=== PATIENT | female | born 1940 | race Caucasian/White ===

== ENCOUNTER 2023-06-08 19:56 | Inpatient (IN) ==
[2023-06-08 21:21] LABS: Albumin Globulin Ratio 1.3 (0.9-2); Albumin Level 3.9 gm/dl (3.4-5.0); BUN Creatinine Ratio 19.3 (10-20); Bilirubin,Total 0.5 mg/dl (0.2-1.0); Calcium 9.2 mg/dl (8.6-10.3); Creatinine Clr Calc Pharmacy 54.5 ml/min; Est GFR (African American) 75.6 ml/min; Est GFR (Non-African American) 65.2 ml/min; Globulin 3.1 gm/dl (2.5-4.0); Potassium 3.9 mmol/L (3.5-5.1)
[2023-06-08 21:27] LABS: Basophils # (auto) 0.04 K/uL (0.00-0.20); Basophils % (auto) 0.5 %; Eosinophils # (auto) 0.12 K/uL (0.00-0.50); Eosinophils % (auto) 1.5 %; Hematocrit (blood only) 38.5 % (37.0-47.0); Hemoglobin 12.7 g/dl (12.0-16.0); Immature Granulocytes # (auto) 0.02 K/uL (0.01-0.20); Immature Granulocytes % (auto) 0.2 %; Lymphocytes % (auto) 24.2 %; Mean Corpuscular Hemoglobin 31.4 pg (25.0-34.0); Mean Corpuscular Volume 95.1 fL (80.0-100.0); Mean Platelet Volume 13.4 fL (9.4-12.4); Monocytes # (auto) 0.74 K/uL (0.11-0.59); Monocytes % (auto) 8.9 %; Neutrophils # (auto) 5.35 K/uL (1.40-6.50); Neutrophils % (auto) 64.7 %; Platelet Count 116 K/uL (130-400); RDW Coefficient of Variation 13.8 % (11.5-14.5); RDW Standard Deviation 48.7 fL (36.4-46.3); Red Blood Count 4.05 M/uL (4.20-5.40); White Blood Count 8.27 K/ul (4.8-10.8)
[2023-06-08 21:28] LABS: Troponin I High Sensitivity 16.3 pg/ml (0-14)
[2023-06-08 21:32] LABS: Partial Thromboplastin Ratio 0.8; Partial Thromboplastin Time 23.6 Seconds (21.0-31.0); Prothrombin Time 10.9 Seconds (9.0-12.0)
[2023-06-08] MEDS ORDERED: dilTIAZem HCl 5 MG/ML 5 ML VIAL IV STA ×2 (21:49→22:38)
--- NOTE | 2023-06-08 21:54 | Emergency Department Note ---
Impression & Plan Atrial fibrillation with rapid ventricular response ED Provider Note NAME: PHOEBE MORELOS AGE: 83 SEX: F : 1940 ARRIVES VIA: Walk-In INFORMANT: Patient, ED PROVIDER(S): Paulette Spring MD CHIEF COMPLAINT: "I am fibrillating " HPI: This is an 83-year-old female history of hypertension, CKD, aortic valve stenosis status post replacement presenting for elevated heart rate. Patient states that she the past 1 week has noted palpitations in her chest. She notes for the past 1 week she has been having increasing palpitations specifically when she is walking around and now progressed into when she is at rest. She notes no shortness of breath. She has no fatigue with walking. No chest pain. No nausea, vomiting, fever, chills, leg pain, I dysuria, hematuria. ROS: See above HPI for pertinent positives & negatives. A total of 10 systems reviewed and were otherwise negative. PAST MEDICAL HISTORY: See Below PAST SURGICAL HISTORY: See Below FAMILY HISTORY: See Below SOCIAL HISTORY: See Below HOME MEDICATIONS: See Below ALLERGIES: See Below VITALS: See Below PHYSICAL EXAMINATION: General: resting comfortably in no acute distress Head: Normocephalic and atraumatic Eyes: Normal inspection, extraocular muscles intact, no conjunctival pallor Ear, nose, throat: Normal external exam Neck: Normal range of motion Respiratory: Patient is in no respiratory distress, lungs clear to auscultation bilaterally Cardiovascular: Irregularly irregular without murmur appreciated GI: soft, nontender, no guarding or rebound Extremities: pulses intact with good cap refills, no LE pitting edema or calf tenderness Neuro: The patient awake and alert, appropriately conversive,no focal decifits Skin: Warm, dry, and intact MEDICAL DECISION MAKING: This is an 83-year-old female history of hypertension, CKD, aortic valve stenosis presenting for elevated heart rate. Patient is in A-fib with RVR with rates in the 110s to 140s. We will give IV diltiazem at this time. We will look for other source such as UTI for underlying A-fib. Patient does have a slight troponin elevation, possibly demand based on A-fib. Otherwise at the time patient required 2 IV doses of diltiazem. She has moderate improvement in her heart rate but is still occasionally above 100. Due to this plus troponin elevation and [id number] of 4, will admit for anticoagulation, A-fib control, echocardiogram and further work-up. Patient does have a UTI at this time a urinalysis, possible source of underlying A-fib. Will treat Rocephin. Will admit to hospitalist service, discussed with Dr. Ibanez for admission. Triage Nursing notes reviewed. Prior medical records reviewed Vital Signs: reviewed and remarkable for no significant abnormalities Differential diagnosis: Atrial fibrillation, ACS, PE ER treatment provided: See below Diagnostics interpreted by me: ECG: ECG independently interpreted by me with atrial fibrillation with RVR, ventricular rate 118 normal QRS, normal QTc, no ST segment elevations consistent with STEMI criteria Cardiac Monitoring: An order was placed for continuous cardiac monitoring. The monitor shows a rate of 107 with atrial fibrillation rhythm. Laboratory studies: As stated above and show below. Imaging studies: See below. Radiographic imaging was reviewed by myself Consultation(s): None Critical Care Note: I have personally spent 47 minutes of critical care time in the direct management of this patient. This includes bedside care, interpretation of diagnostic studies, and testing, discussion with consultants, patient, and family members, and other required patient management activities. This 47 minutes is in excess of all separately billable procedures. Past Med/Surg History Medical History (Updated 06/09/23 @ 02:13 by Paulette Spring MD) Hx of breast cancer surgical intervention and had chemo - last dose 1989 RUTHIE (generalized anxiety disorder) GERD (gastroesophageal reflux disease) Vitamin D deficiency CKD (chronic kidney disease), stage III Hypothyroidism HLD (hyperlipidemia) Aortic valve stenosis S/p bioprosthetic aortic valve replacement in Mar 2018 at [facility] [place] Hypertension Surgical History (System 02/04/20 @ 10:02 by Lian Feliz) History of left cataract extraction Hx of colonoscopy H/O aortic valve replacement with porcine valve 2018 History of hernia repair inguinal hernia repair S/P TKR (total knee replacement) left H/O mastectomy left Family History (System 02/04/20 @ 10:02 by Lian Feliz) Other Coronary heart disease Heart disease Hypertension Social History (System 02/04/20 @ 10:02 by Lian Feliz) Smoking Status: Former smoker Second Hand Exposure: No; Do You Dip or Chew Tobacco: No; Hx Alcohol Use: Yes Alcohol type: wine Hx Substance Use: No Preferred Language: Serbian Communication Ability: Effective Government Teacher Required: No Beliefs That Will Affect Care: None Current Living Situation: Spouse current occupation: Retired Feels Safe at Home: Yes Assistive Devices: Denture - Upper and Glasses Allergies Allergies Allergy/AdvReac Type Severity Reaction Status Date / Time Sulfa (Sulfonamide AdvReac Intermediate Nausea & Verified 06/08/23 23:05 Antibiotics) Vomiting amoxicillin AdvReac Mild decreased Verified 06/08/23 23:05 sensation of smell and taste clavulanic acid AdvReac Mild decreased Verified 06/08/23 23:05 sensation of smell and taste Home Meds Home Medications Medication Instructions Recorded Confirmed acetaminophen 500 mg tablet 500 mg PO Q8H PRN Pain 04/30/18 06/08/23 amoxicillin 500 mg tablet 4 cap PO UD PRN dental procedure 04/30/18 06/08/23 aspirin 81 mg tablet,delayed 81 mg PO DAILY 04/30/18 06/08/23 release (Kesha Low Dose Aspirin) buspirone 10 mg tablet 10 mg PO TID PRN Anxiety 04/30/18 06/08/23 calcium acetate(phosphat bind) 667 1 tab PO DAILY 04/30/18 06/08/23 mg capsule cholecalciferol (vitamin D3) 25 1,000 unit PO DAILY 04/30/18 06/08/23 mcg (1,000 unit) tablet (Vitamin D3) famotidine 20 mg tablet (Pepcid) 20 mg PO Q12 04/30/18 06/08/23 levothyroxine 200 mcg tablet 200 mcg PO QAM 04/30/18 06/08/23 multivitamin 1 tab PO DAILY 04/30/18 06/08/23 sertraline 100 mg tablet 150 mg PO QAM 04/30/18 06/08/23 metoprolol tartrate 50 mg tablet 25 mg PO Q12 06/08/23 06/08/23 rosuvastatin 40 mg tablet 40 mg PO QAM 06/08/23 06/08/23 Results & Data (ED) Vital Signs Vital Signs - 24 hr 06/08/23 19:58 06/08/23 21:09 06/08/23 21:30 Temperature 36.8 C Temperature Source Temporal Artery Scan Pulse Rate 142 H 119 H Pulse Rate from SpO2 Sensor Pulse Rhythm Regular Pulse Strength Normal Respiratory Rate 19 Respiratory Effort / Characteristics Non-Labored Spontaneous Respiratory Depth Normal Respiratory Pattern Regular Blood Pressure 147/86 H 131/101 H Blood Pressure Mean 106 115 Blood Pressure Position Sitting Pulse Oximetry 90 Oxygen Delivery Method Room Air Sepsis Recent Fever Within 48 Hours No Sepsis New/Unexplained Change in Mental Status N/A Sepsis Action Taken by Nursing No Action Required 06/08/23 21:30 06/08/23 22:00 06/08/23 22:00 Temperature Temperature Source Pulse Rate 132 H 86 Pulse Rate from SpO2 Sensor 124 H 92 H Pulse Rhythm Pulse Strength Respiratory Rate 16 24 Respiratory Effort / Characteristics Respiratory Depth Respiratory Pattern Blood Pressure 109/70 Blood Pressure Mean 96 Blood Pressure Position Pulse Oximetry 95 95 Oxygen Delivery Method Sepsis Recent Fever Within 48 Hours Sepsis New/Unexplained Change in Mental Status Sepsis Action Taken by Nursing 06/08/23 22:29 06/08/23 22:30 06/08/23 23:00 Temperature Temperature Source Pulse Rate 104 H 85 Pulse Rate from SpO2 Sensor 116 H 81 Pulse Rhythm Pulse Strength Respiratory Rate 16 18 Respiratory Effort / Characteristics Respiratory Depth Respiratory Pattern Blood Pressure 127/90 134/77 Blood Pressure Mean 111 96 Blood Pressure Position Pulse Oximetry 94 95 Oxygen Delivery Method Sepsis Recent Fever Within 48 Hours Sepsis New/Unexplained Change in Mental Status Sepsis Action Taken by Nursing 06/08/23 23:31 06/09/23 00:31 Temperature Temperature Source Pulse Rate 90 107 H Pulse Rate from SpO2 Sensor 92 H 98 H Pulse Rhythm Pulse Strength Respiratory Rate 19 13 Respiratory Effort / Characteristics Respiratory Depth Respiratory Pattern Blood Pressure 140/91 153/99 H Blood Pressure Mean 107 117 Blood Pressure Position Pulse Oximetry 94 95 Oxygen Delivery Method Sepsis Recent Fever Within 48 Hours Sepsis New/Unexplained Change in Mental Status Sepsis Action Taken by Nursing Laboratory Data 06/08/23 20:28 06/08/23 20:28 Lab Results 06/08/23 06/08/23 Range/Units 20:28 22:35 WBC 8.27 (4.8-10.8) K/ul RBC 4.05 L (4.20-5.40) M/uL Hgb 12.7 (12.0-16.0) g/dl Hct 38.5 (37.0-47.0) % MCV 95.1 (80.0-100.0) fL MCH 31.4 (25.0-34.0) pg MCHC 33.0 (32.0-36.0) g/dL RDW Std Deviation 48.7 H (36.4-46.3) fL RDW Coeff of Mary 13.8 (11.5-14.5) % Plt Count 116 L (130-400) K/uL MPV 13.4 H (9.4-12.4) fL Immature Gran % (Auto) 0.2 % Neut % (Auto) 64.7 % Lymph % (Auto) 24.2 % Rowan % (Auto) 8.9 % Eos % (Auto) 1.5 % Baso % (Auto) 0.5 % Neut # (Auto) 5.35 (1.40-6.50) K/uL Lymph # (Auto) 2.00 (1.20-3.40) K/uL Rowan # (Auto) 0.74 H (0.11-0.59) K/uL Eos # (Auto) 0.12 (0.00-0.50) K/uL Baso # (Auto) 0.04 (0.00-0.20) K/uL Immature Gran # (Auto) 0.02 (0.01-0.20) K/uL PT 10.9 (9.0-12.0) Seconds INR 1.0 (0.9-1.1) APTT 23.6 (21.0-31.0) Seconds PTT Ratio 0.8 Sodium 140 (136-145) mmol/L Potassium 3.9 (3.5-5.1) mmol/L Chloride 108 H (98-107) mmol/L Carbon Dioxide 26 (21-32) mmol/L Anion Gap 6 (3-11) BUN 16 (6-23) mg/dl Creatinine 0.83 (0.6-1.2) mg/dl Est Cr Clr Drug Dosing 54.5 ml/min Est GFR ( Amer) 75.6 ml/min Est GFR (Non-Af Amer) 65.2 ml/min BUN/Creatinine Ratio 19.3 (10-20) Glucose 97 (70-99(Fasting)) mg/dl Calcium 9.2 (8.6-10.3) mg/dl Magnesium 1.9 (1.7-2.4) mg/dl Total Bilirubin 0.5 (0.2-1.0) mg/dl AST 30 (13-39) U/L ALT 15 (7-52) U/L Alkaline Phosphatase 69 (34-104) U/L Troponin I High Sens 16.3 H (0-14) pg/ml Total Protein 7.0 (6.0-8.3) gm/dl Albumin 3.9 (3.4-5.0) gm/dl Globulin 3.1 (2.5-4.0) gm/dl Albumin/Globulin Ratio 1.3 (0.9-2) TSH 0.191 L (0.300-4.500) uIu/ml Free T4 0.97 (0.61-1.60) ng/dl Urine Color Yellow Urine Appearance Clear (Clear) Urine pH 6.0 (4.5-7.5) Ur Specific [place] 1.013 (1.000-1.030) Urine Protein Negative (Negative) Urine Glucose (UA) Negative (Negative) Urine Ketones Trace H (Negative) Urine Blood Negative (Negative) Urine Nitrite Negative (Negative) Urine Bilirubin Negative (Negative) Urine Urobilinogen Negative (Negative) Ur Leukocyte Esterase 1+ H (Negative) Urine WBC (Auto) 10-30 H (0-5) /hpf Urine RBC (Auto) 0-4 (0-4) /hpf U Hyaline Cast (Auto) 1-5 (0-5) /lpf U Epithel Cells (Auto) 5-10 H (0-5) /lpf Urine Bacteria (Auto) Negative (Negative) Administered Medications Discontinued Medications Diltiazem HCl (Diltiazem Hcl 5 Mg/Ml 5 Ml Vial) 10 mg IV NOW STA Stop: 06/08/23 21:50 Last Admin: 06/08/23 21:54 Dose: 10 mg Documented By: JOSE ANTONIO Co-signed By: QGV Diltiazem HCl (Diltiazem Hcl 5 Mg/Ml 5 Ml Vial) 10 mg IV NOW STA Stop: 06/08/23 22:39 Last Admin: 06/08/23 22:46 Dose: 10 mg Documented By: JOSE ANTONIO Co-signed By: JENSEN Ceftriaxone Sodium 1,000 mg/ (Dextrose) 50 mls @ 100 mls/hr IV NOW STA; Protocol Stop: 06/09/23 00:26 Last Infusion: 06/09/23 01:19 Dose: Infused Documented By: JOSE ANTONIO Admin: 06/09/23 00:43 Dose: 100 mls/hr Documented By: JOSE ANTONIO Ioversol (Optiray 320 500ml) 125 ml IV ONCE ONE Stop: 06/09/23 01:54 Last Admin: 06/09/23 01:54 Dose: 109 ml Documented By: IAN Metoprolol Tartrate (Metoprolol Tartrate 1 Mg/Ml Vial) 5 mg IV NOW STA Stop: 06/08/23 22:38 Last Admin: 06/08/23 22:49 Dose: Not Given Documented By: JOSE ANTONIO Metoprolol Tartrate (Metoprolol Tartrate 25 Mg Tab) 25 mg PO NOW STA Stop: 06/08/23 23:28 Last Admin: 06/09/23 00:07 Dose: 25 mg Documented By: JOSE ANTONIO Potassium Chloride (Potassium Chloride 10 Meq Tabcr) 10 meq PO NOW STA Stop: 06/08/23 23:25 Last Admin: 06/09/23 01:20 Dose: Not Given Documented By: JOSE ANTONIO Discharge Plan Visit Data Chief Complaint: Tachycardia Stated Complaint: ?AFIB, TACHYCARDIA ED Provider: Paulette Spring Discharge Problem: Atrial fibrillation with rapid ventricular response Patient Disposition: Admitted As Inpatient Discharge Instructions Interventions: ED Discharge Assessment Last Done: 06/09/23 01:37
[2023-06-08] MEDS ORDERED: METOPROLOL TARTRATE 1 MG/ML VIAL IV STA (22:37)
[2023-06-08 22:59] LABS: Appearance Urine Clear (Clear); Bacteria Urine Automated Negative (Negative); Bilirubin Urine Negative (Negative); Blood Urine Negative (Negative); Color Urine Yellow; Glucose Urine UA Negative (Negative); Ketones Urine Trace (Negative); Leukocyte Esterase Urine 1+ (Negative); Nitrite Urine Negative (Negative); Protein Urine Negative (Negative); RBC Urine Automated 0-4 /hpf (0-4); Specific Gravity Urine 1.013 (1.000-1.030); Urobilinogen Urine Negative (Negative)
[2023-06-08] MEDS ORDERED: POTASSIUM CHLORIDE 10 MEQ TABCR PO STA (23:24)
[2023-06-08] MEDS ORDERED: NSS + 20MEQ KCL 20 MEQ/1,000 ML BAG IV ONE (23:27)
[2023-06-08] MEDS ORDERED: METOPROLOL TARTRATE 25 MG TAB PO STA (23:27)
[2023-06-08 23:43] LABS: Magnesium 1.9 mg/dl (1.7-2.4)
[2023-06-08] MEDS ORDERED: cefTRIAXone SODIUM 1,000 MG in DEXTROSE 5 % MINI-B 50 ML IV STA (23:57)
[2023-06-09 00:02] LABS: Thyroid Stimulating Hormone 0.191 uIu/ml (0.300-4.500)
[2023-06-09] MEDS ORDERED: Heparin IV Adult Wt-Based Low-Dose *NO* Bolus Protocol IV SCH (00:33)
--- NOTE | 2023-06-09 00:33 | History & Physical Report ---
Date of Service June 09, 2023 Assessment & Plan (1) Atrial fibrillation with rapid ventricular response: Plan: Recurrent A-fib History postop A-fib, hx aortic stenosis status post bioprosthetic AVR (2015) Secondary to noncompliance with prescribed beta-tommie regimen frequency Rule out pulmonary embolism as precipitant given pleuritic chest pain complaints Troponin elevation secondary above history of diastolic dysfunction (EF 65%, TTE 2022) hx nonobstructive CAD as per records hypertension, stable hyperlipidemia, on statin Rx hypothyroidism, TSH noted to be low with normal free T4 left breast cancer status post surgery anxiety/mood disorder, baseline symptoms Complicated UTI, no sepsis for now New onset thrombocytopenia, patient without overt bleeding symptoms Past tobacco abuse PCU Titrate home beta-tommie Patient educated regarding compliance with prescribed twice daily frequency dosing for home metoprolol tartrate Rx IV heparin for thromboembolic prophylaxis. Monitor platelet count while on IV heparin CT chest PE study Follow troponin TTE, Cardiology consult Re: Recurrent A-fib Urine CS, Ceftriaxone DVT prophylaxis. Heparin Full code Text document was generated using sMedio voice recognition software. It may contain grammatical or spelling errors. Kindly contact undersigned for clarification of any documentation item in question. History of Present Illness Chief Complaint: Atrial fibrillation Primary Care Provider: Helio Muse MD History obtained from patient, family, and records. Medical history significant for history of diastolic dysfunction (EF 65%, TTE 2022), nonobstructive CAD as per records, aortic stenosis status post bioprosth etic AVR (2015), postop A-fib, hypertension, hyperlipidemia, hypothyroidism, GERD, left breast cancer status post surgery/chemotherapy, skin cancer as per records, anxiety/mood disorder, Paget's disease as per records, past tobacco abuse. Last confinement April 2018 for pleural effusion. 1 week history of intermittent chest palpitations, SOB more pronounced on exertion. No unusual cough symptoms. Pleuritic left-sided chest discomfort. No unusual fluid retention. Some stress with 's medical issues. No inordinate caffeine intake. Patient taking metoprolol 25 mg p.o. daily instead of 12.5 mg p.o. twice daily as instructed for some time now. Few days history of bladder discomfort without flank pain or hematuria complaints. No fever, no chills. Patient mentioned palpitation symptoms to son yesterday while visiting her at rehab hospital. A-fib noted on son's watch dinora. Patient consulted ER for evaluation. 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 Allergies Allergy/AdvReac Type Severity Reaction Status Date / Time Sulfa (Sulfonamide AdvReac Intermediate Nausea & Verified 06/08/23 23:05 Antibiotics) Vomiting amoxicillin AdvReac Mild decreased Verified 06/08/23 23:05 sensation of smell and taste clavulanic acid AdvReac Mild decreased Verified 06/08/23 23:05 sensation of smell and taste Home Medications Medication Instructions Recorded Confirmed Type acetaminophen 500 mg tablet 500 mg PO Q8H PRN Pain 04/30/18 06/08/23 History amoxicillin 500 mg tablet 4 cap PO UD PRN dental procedure 04/30/18 06/08/23 History aspirin 81 mg tablet,delayed 81 mg PO DAILY 04/30/18 06/08/23 History release (Kesha Low Dose Aspirin) buspirone 10 mg tablet 10 mg PO TID PRN Anxiety 04/30/18 06/08/23 History calcium acetate(phosphat bind) 667 1 tab PO DAILY 04/30/18 06/08/23 History mg capsule cholecalciferol (vitamin D3) 25 1,000 unit PO DAILY 04/30/18 06/08/23 History mcg (1,000 unit) tablet (Vitamin D3) famotidine 20 mg tablet (Pepcid) 20 mg PO Q12 04/30/18 06/08/23 History levothyroxine 200 mcg tablet 200 mcg PO QAM 04/30/18 06/08/23 History multivitamin 1 tab PO DAILY 04/30/18 06/08/23 History sertraline 100 mg tablet 150 mg PO QAM 04/30/18 06/08/23 History metoprolol tartrate 50 mg tablet 25 mg PO Q12 06/08/23 06/08/23 History rosuvastatin 40 mg tablet 40 mg PO QAM 06/08/23 06/08/23 History Past Med/Surg History Medical History (Updated 06/09/23 @ 07:41 by JHONATHAN Cavanaugh) Hx of breast cancer surgical intervention and had chemo - last dose 1989 RUTHIE (generalized anxiety disorder) GERD (gastroesophageal reflux disease) Vitamin D deficiency CKD (chronic kidney disease), stage III Hypothyroidism HLD (hyperlipidemia) Aortic valve stenosis S/p bioprosthetic aortic valve replacement in Mar [place] [facility] [place] Hypertension Surgical History (Updated 06/09/23 @ 07:41 by JHONATHAN Cavanaugh) History of left cataract extraction Hx of colonoscopy H/O aortic valve replacement with porcine valve 2017 History of hernia repair inguinal hernia repair S/P TKR (total knee replacement) left H/O mastectomy left Family History (System 02/04/20 @ 10:02 by Lian Feliz) Other Coronary heart disease Heart disease Hypertension Social History (System 02/04/20 @ 10:02 by Lian Feliz) Smoking Status: Former smoker Smoking End Date: 40 years ago; Second Hand Exposure: No; Do You Dip or Chew Tobacco: No; Tobacco Cessation Education Requested by Patient: No Hx Alcohol Use: Yes Alcohol type: wine Hx Substance Use: No Preferred Language: Mauritanian Communication Ability: Effective Lgsw Required: No Beliefs That Will Affect Care: None Current Living Situation: Spouse current occupation: Retired Other Information That Helps Us Care for You: No Feels Safe at Home: Yes Safety Concerns: Feels Safe At This Time Assistive Devices: Glasses Review of Systems Review of Systems: As per HPI, all other systems reviewed and negative Physical Exam Physical Exam: GENERAL: Comfortable, pleasant, looks younger than stated age, no respiratory distress SKIN: Normal color, warm HEENT: Bespectacled, [place] palpebral conjunctivae, no ptosis, moist buccal mucosa NECK : Supple, no tenderness CHEST : Decreased breath sounds, no tenderness HEART : Irregular, systolic murmur ABDOMEN: Some distention, nontender EXTREMITIES : Minimal LE swelling, no LE tenderness, no other conspicuous deformities noted NEUROLOGIC : Coherent, no facial asymmetry, no other gross focality Results & Data Results & Data Vital Signs (Past 12 Hours) Vital Signs Temp Pulse Resp BP Pulse Ox O2 Del Method 06/08/23 22:30 127/90 06/08/23 22:29 104 H 16 94 06/08/23 22:00 109/70 06/08/23 22:00 86 24 95 06/08/23 21:30 132 H 16 95 06/08/23 21:30 131/101 H 06/08/23 21:09 119 H 06/08/23 19:58 36.8 C 142 H 19 147/86 H 90 Room Air Laboratory Results Laboratory Results WBC 8.27 K/ul (4.8-10.8) 06/08/23 20: RBC 4.05 M/uL (4.20-5.40) L 06/08/23 20: Hgb 12.7 g/dl (12.0-16.0) 06/08/23: Hct 38.5 % (37.0-47.0) 06/08/23: MCV 95.1 fL (80.0-100.0) 06/08/23: MCH 31.4 pg (25.0-34.0) 06/08/23: MCHC 33.0 g/dL (32.0-36.0) 06/08/23 RDW Std Deviation 48.7 fL (36.4-46.3) H 06/08/23: RDW Coeff of Mary 13.8 % (11.5-14.5) 06/08/23: Plt Count 116 K/uL (130-400) L 06/08/23: MPV 13.4 fL (9.4-12.4) H 06/08/23: Immature Gran % (Auto) 0.2 % 06/08/23: Neut % (Auto) 64.7 % 06/08/23: Lymph % (Auto) 24.2 % 06/08/23: [place]k % (Auto) 8.9 % 06/08/23: Eos % (Auto) 1.5 % 06/08/23: Baso % (Auto) 0.5 % 06/08/23: Neut # (Auto) 5.35 K/uL (1.40-6.50) 06/08/23: Lymph # (Auto) 2.00 K/uL (1.20-3.40) 06/08/23: Polk # (Auto) 0.74 K/uL (0.11-0.59) H 06/08/23: Eos # (Auto) 0.12 K/uL (0.00-0.50) 11/02/23 20:28 Baso # (Auto) 0.04 K/uL (0.00-0.20) 06/08/23 20:28 Immature Gran # (Auto) 0.02 K/uL (0.01-0.20) 06/08/23 20: PT 10.9 Seconds (9.0-12.0) 06/08/23 20: INR 1.0 (0.9-1.1) 06/08/23 20: APTT 23.6 Seconds (21.0-31.0) 06/08/23 20: PTT Ratio 0.8 06/08/23 20: Sodium 140 mmol/L (136-145) 06/08/23 20: Potassium 3.9 mmol/L (3.5-5.1) 06/08/23 20: Chloride 108 mmol/L (98-107) H 06/08/23 20: Carbon Dioxide 26 mmol/L (21-32) 06/08/23 20: Anion Gap 6 (3-11) 06/08/23 20:28 BUN 16 mg/dl (6-23) 06/08/23 20: Creatinine 0.83 mg/dl (0.6-1.2) 06/08/23 20: Est Cr Clr Drug Dosing 54.5 ml/min 06/08/23 20: Est GFR ( Amer) 75.6 ml/min 06/08/23 20: Est GFR (Non-Af Amer) 65.2 ml/min 06/08/23 20: BUN/Creatinine Ratio 19.3 (10-20) 06/08/23 20:28 Glucose 97 mg/dl (70-99(Fasting)) 06/08/23 20: Calcium 9.2 mg/dl (8.6-10.3) 06/08/23 20: Magnesium 1.9 mg/dl (1.7-2.4) 06/08/23 20: Total Bilirubin 0.5 mg/dl (0.2-1.0) 06/08/23 20:28 AST 30 U/L (13-39) 06/08/23 20:28 ALT 15 U/L (7-52) 06/08/23 20:28 Alkaline Phosphatase 69 U/L (34-104) 06/08/23 20: Troponin I High Sens 16.3 pg/ml (0-14) H 06/08/23 20: Total Protein 7.0 gm/dl (6.0-8.3) 06/08/23 20: Albumin 3.9 gm/dl (3.4-5.0) 06/08/23 20: Globulin 3.1 gm/dl (2.5-4.0) 06/08/23 20: Albumin/Globulin Ratio 1.3 (0.9-2) 06/08/23 20: TSH 0.191 uIu/ml (0.300-4.500) L 06/08/23 20: Urine Color Yellow 06/08/23 22:35 Urine Appearance Clear (Clear) 06/08/23 22: Urine pH 6.0 (4.5-7.5) 06/08/23 22:35 Ur Specific [place] 1.013 (1.000-1.030) 06/08/23 22:35 Urine Protein Negative (Negative) 06/08/23 22:35 Urine Glucose (UA) Negative (Negative) 06/08/23 22:35 Urine Ketones Trace (Negative) H 06/08/23 22:35 Urine Blood Negative (Negative) 06/08/23: Urine Nitrite Negative (Negative) 06/08/23 22:35 Urine Bilirubin Negative (Negative) 06/08/23 22: Urine Urobilinogen Negative (Negative) 06/08/23 22:35 Ur Leukocyte Esterase 1+ (Negative) H 06/08/23 22:35 Urine WBC (Auto) 10-30 /hpf (0-5) H 06/08/23 22:35 Urine RBC (Auto) 0-4 /hpf (0-4) 06/08/23 22:35 U Hyaline Cast (Auto) 1-5 /lpf (0-5) 06/08/23 22:35 U Epithel Cells (Auto) 5-10 /lpf (0-5) H 06/08/23 22:35 Urine Bacteria (Auto) Negative (Negative) 06/08/23 22:35 Diagnostic Findings Chest x-ray as per my interpretation minimal congestion, no infiltrate EKG as per my interpretation : Rate 120, A-fib, LAD, LAFB, LVH, septal infarct, T wave abnormalities septal leads
[2023-06-09 00:39] LABS: T4 Free Thyroxine 0.97 ng/dl (0.61-1.60)
[2023-06-09] MEDS ORDERED: traMADol HCL 50 MG TABLET PO PRN (00:39)
[2023-06-09] MEDS ORDERED: PROMETHAZINE HCL 6.25 MG in SODIUM CHLORIDE 0.9% 50 ML IV PRN (00:39)
[2023-06-09] MEDS ORDERED: MAGNESIUM SULFATE / D5W 1 GM/100 ML BAG IV ONE (01:00)
[2023-06-09] MEDS ORDERED: OPTIRAY 320 500ml IV ONE (01:53)
[2023-06-09] MEDS ORDERED: ACETAMINOPHEN 325 MG TAB PO PRN (02:01)
[2023-06-09] MEDS ORDERED: Nursing to Pharmacy Communication SCH (02:45)
[2023-06-09] MEDS: HEPARIN SODIUM/DEXTROSE 25,000 UNITS/500 ML BAG IV SCH (02:51)
--- NOTE | 2023-06-09 03:58 | CT Scan Report ---
Exam(s): CTA CHEST IV Amt: 109 ml optiray 320 EXAM: CT Angiography Chest With Intravenous Contrast CLINICAL HISTORY: Reason for exam: cp. TECHNIQUE: Axial computed tomographic angiography images of the chest with intravenous contrast. Automated exposure control was utilized for the study. A dose lowering technique was utilized adhering to the principles of ALARA. MIP reconstructed images were created and reviewed. COMPARISON: CTA Chest dated 03/31/18 FINDINGS: Pulmonary arteries: Unremarkable. No pulmonary embolism. Aorta: No acute findings. No thoracic aortic aneurysm. Lungs: Bibasilar atelectasis. No mass. Mild septal thickening. No focal consolidation. Pleural space: Small bilateral pleural effusions. No pneumothorax. Heart: CABG. Left atrial appendage clip. Coronary calcifications. Prosthetic aortic valve. No significant pericardial effusion. No evidence of RV dysfunction. Mediastinum: Large hiatal hernia filled with fluid. Bones/joints: Median sternotomy wires. No acute fracture. No dislocation. Soft tissues: Unremarkable. Lymph nodes: Unremarkable. No enlarged lymph nodes. Liver: Stable 3.5 cm liver low-density lesion. IMPRESSION: 1. No evidence of pulmonary embolism. 2. Cardiomegaly, postoperative changes, small pleural effusions and septal thickening. May represent findings of congestive heart failure. No focal consolidation or significant airspace disease. 3. Large hiatal hernia filled with fluid. Electronically signed by: Betito Blanco M.D. 06/09/23 03:57 AM
[2023-06-09 05:01] LABS: BUN Creatinine Ratio 18.4 (10-20); Calcium 8.3 mg/dl (8.6-10.3); Creatinine Clr Calc Pharmacy 54.5 ml/min; Est GFR (African American) 84.1 ml/min; Est GFR (Non-African American) 72.5 ml/min; Potassium 3.8 mmol/L (3.5-5.1)
[2023-06-09 05:02] LABS: Basophils # (auto) 0.03 K/uL (0.00-0.20); Basophils % (auto) 0.5 %; Eosinophils # (auto) 0.12 K/uL (0.00-0.50); Hematocrit (blood only) 33.7 % (37.0-47.0); Hemoglobin 11.1 g/dl (12.0-16.0); Immature Granulocytes # (auto) 0.01 K/uL (0.01-0.20); Immature Granulocytes % (auto) 0.2 %; Lymphocytes # (auto) 1.58 K/uL (1.20-3.40); Lymphocytes % (auto) 26.2 %; Mean Corpuscular Hemoglobin 31.4 pg (25.0-34.0); Mean Corpuscular Hgb Conc 32.9 g/dL (32.0-36.0); Mean Corpuscular Volume 95.5 fL (80.0-100.0); Mean Platelet Volume 12.7 fL (9.4-12.4); Monocytes # (auto) 0.57 K/uL (0.11-0.59); Monocytes % (auto) 9.5 %; Neutrophils # (auto) 3.72 K/uL (1.40-6.50); Neutrophils % (auto) 61.6 %; Platelet Count 107 K/uL (130-400); RDW Coefficient of Variation 13.9 % (11.5-14.5); Red Blood Count 3.53 M/uL (4.20-5.40); White Blood Count 6.03 K/ul (4.8-10.8)
[2023-06-09 05:07] LABS: Troponin I High Sensitivity 17.2 pg/ml (0-14)
[2023-06-09] MEDS ORDERED: POTASSIUM CHLORIDE CRTAB 20 MEQ TABCR PO STA ×2 (05:35→10:59)
[2023-06-09] MEDS: LEVOTHYROXINE SODIUM 200 MCG TABLET PO SCH (06:09)
--- NOTE | 2023-06-09 07:16 | XRay Report ---
XR chest 1V not portable CLINICAL HISTORY: Chest pain, nonspecific. COMPARISON STUDY: Chest CT May 01, 2018. FINDINGS: There are median sternotomy wires and a left atrial appendage occluder device. There is no pneumothorax or pleural effusion. A hiatal hernia is noted. Cardiomegaly is unchanged. There is pulmo nary vascular congestion without overt pulmonary edema. There is a trace right pleural effusion. IMPRESSION: 1. Pulmonary vascular congestion. Trace right pleural effusion. 2. Hiatal hernia. ACT 112: Negative or not required by law. Electronically signed by: James Benz M.D. 06/09/2023 7:14 AM
--- NOTE | 2023-06-09 07:43 | Cardiology Consultation ---
Date of Consultation June 09, 2023 Assessment & Plan (1) Atrial fibrillation with rapid ventricular response: (2) (HFpEF) heart failure with preserved ejection fraction: (3) Aortic valve stenosis: (4) S/P AVR (aortic valve replacement): Plan IMPRESSION: 83-year-old female who presented to [facility] emergency department due to palpitations. Found to be in rapid atrial fibrillation. Patient carries a history of chronic diastolic CHF not requiring loop diuretic t herapy, aortic stenosis status post AVR in 2018. Following her AVR she did experience an episode of atrial fibrillation--not previously on anticoagulation. History of a left atrial appendage clip denver cement following AVR. PLAN: PAF: Hx of PAF in 2018 following AVR. Recurrent PAF with rates in the 140s x~ 1 week. Self converted to NSR this am around 2:10 am with rates in the 60-80s. Discontinue metoprolol tartrate in favor of metoprolol succinate 25 mg BID Recommend transition from IV heparin to Eliquis 5 mg BID (age greater than 80, weight greater than 60 kg, and scr under 1.5) at discharge should cost allow. HFpEF: Patient appears mildly hypervolemic on exam with rales auscultated BL with mild dyspnea-- will give 20 mg of IV Lasix + 20 meq of KCL this am. Not normally on loop diuretic therapy at home. Strict I&O, daily weights, 2g sodium diet. CHF EDU Echo pending Case discussed with Dr. Mcleod- will follow. Supervising Physician Co-Signing Physician Notes 83-year-old female present to the ER with palpitations and irregular heartbeats. ECG on admission demonstrating atrial fibrillation with rapid ventricular response. Treated with IV metoprolol and diltiazem in the ER. Spontaneously converted to sinus rhythm last night. Remains in sinus rhythm currently. Metoprolol tartrate transition to succinate formulation. No lightheadedness, dizziness, syncope, or near syncope. No exertional chest discomfort or unusual shortness of breath. Denies orthopnea, PND, or edema. currently hospitalized at [facility] in [place] due to a fall with subdural hematoma. PE: VSS. Gen: NAD, AAO x 3. Heart: Regular rhythm, normal S1-S2. No murmur. Lungs: Clear bilateral, no rales, rhonchi, wheeze. Extremities: No edema. A/P: Agree with above ENGLISH DIVISION CHAIR history, physical exam, assessment plan. 83-year-old female with history of postoperative paroxysmal atrial fibrillation status post AVR and left atrial appendage clip presents with recurrent atrial fibrillation with rapid ventricular response. Spontaneously converted to normal sinus rhythm last night. Further treatment options discussed including continuing beta- tommie therapy with addition of Eliquis or transition to antiarrhythmic therapy. Risk versus benefit of sotalol loading reviewed. Patient agreeable. Begin sotalol 80 mg twice daily, first dose this afternoon. Repeat ECG in a.m. approximately 2 hours after a.m. dose of sotalol. Continue IV heparin with transition to oral Eliquis. Discontinuation of anticoagulation may be considered in the future if patient adequately rhythm controlled in the setting of prior left atrial appendage clip. History of Present Illness Reason for Consultation: Atrial fibrillation Requesting Physician: [facility] Attending Physician: Rose Marie Marrero MD History of Present Illness 83[facility] department last evening due to concerns of palpitations x1 week. Patient was found to be in atrial fibrillation with RVR with rates in the 110s to 140s In the emergency department she was treated with IV diltiazem and metoprolol--as an outpatient she is normally maintained on metoprolol tartrate 25 mg twice daily Due to an elevated [id number] score of 4, anticoagulation was started. Of note, she does have a left atrial appendage clip placed following aortic valve replacement 03/2018 Recently had an outpatient echocardiogram pul completed on 05/16/2023. Imaging revealed a preserved LV systolic function with moderate concentric LVH. Systolic gradients across the bioprosthetic aortic valve were normal but slightly increased when compared to 2020. Tele: AFIB till about 0140 am-- converted while off monitor coming up from the ED. NSR as of 0210 am, rates have been 60-80s. Upon entrance into the room patient resting comfortably in bed. No acute concerns. Denies chest pain. In hindsight patient believes she has been going in and out of AFIB over the last few months due to palpitations she has been feeling. Mild dyspnea with exertion. Denies orthopnea, PND, or lower extremity edema. Denies any history of abnormal bleeding. PAST MEDICAL HISTORY: 1. Aortic stenosis status post aortic valve replacement with a 23 mm Epic valve, 03/2018 1. Postoperative atrial fibrillation with concomitant left atrial appendage clip. 2. Chronic diastolic CHF--not requiring loop diuretic therapy 3. Hypertension. 4. Hyperlipidemia. 5. Hypothyroidism. 6. No significant obstructive coronary artery disease by cardiac catheterization, 2017. Allergies Allergy/AdvReac Type Severity Reaction Status Date / Time Sulfa (Sulfonamide AdvReac Intermediate Nausea & Verified 06/08/23 23:05 Antibiotics) Vomiting amoxicillin AdvReac Mild decreased Verified 06/08/23 23:05 sensation of smell and taste clavulanic acid AdvReac Mild decreased Verified 06/08/23 23:05 sensation of smell and taste Home Medications Medication Instructions Recorded Confirmed Type acetaminophen 500 mg tablet 500 mg PO Q8H PRN Pain 04/30/18 06/08/23 History amoxicillin 500 mg tablet 4 cap PO UD PRN dental procedure 04/30/18 06/08/23 History aspirin 81 mg tablet,delayed 81 mg PO DAILY 04/30/18 06/08/23 History release (Kesha Low Dose Aspirin) buspirone 10 mg tablet 10 mg PO TID PRN Anxiety 04/30/18 06/08/23 History calcium acetate(phosphat bind) 667 1 tab PO DAILY 04/30/18 06/08/23 History mg capsule cholecalciferol (vitamin D3) 25 1,000 unit PO DAILY 04/30/18 06/08/23 History mcg (1,000 unit) tablet (Vitamin D3) famotidine 20 mg tablet (Pepcid) 20 mg PO Q12 04/30/18 06/08/23 History levothyroxine 200 mcg tablet 200 mcg PO QAM 04/30/18 06/08/23 History multivitamin 1 tab PO DAILY 04/30/18 06/08/23 History sertraline 100 mg tablet 150 mg PO QAM 04/30/18 06/08/23 History metoprolol tartrate 50 mg tablet 25 mg PO Q12 06/08/23 06/08/23 History rosuvastatin 40 mg tablet 40 mg PO QAM 06/08/23 06/08/23 History Patient History Medical History (Updated 06/09/23 @ 07:41 by JHONATHAN Cavanaugh) Hx of breast cancer surgical intervention and had chemo - last dose 1989 RUTHIE (generalized anxiety disorder) GERD (gastroesophageal reflux disease) Vitamin D deficiency CKD (chronic kidney disease), stage III Hypothyroidism HLD (hyperlipidemia) Aortic valve stenosis S/p bioprosthetic aortic valve replacement in Mar 2018 at [facility] [place] [place] Hypertension Surgical History (Updated 06/09/23 @ 07:41 by JHONATHAN Cavanaugh) History of left cataract extraction Hx of colonoscopy H/O aortic valve replacement with porcine valve 2017 History of hernia repair inguinal hernia repair S/P TKR (total knee replacement) left H/O mastectomy left Family History (System 02/04/20 @ 10:02 by Lian Feliz) Other Coronary heart disease Heart disease Hypertension Social History (System 02/04/20 @ 10:02 by Lian Feliz) Smoking Status: Former smoker Smoking End Date: 40 years ago; Second Hand Exposure: No; Do You Dip or Chew Tobacco: No; Tobacco Cessation Education Requested by Patient: No Hx Alcohol Use: Yes Alcohol type: wine Hx Substance Use: No Preferred Language: Khmer Communication Ability: Effective Tool Dresser Required: No Beliefs That Will Affect Care: None Current Living Situation: Spouse current occupation: Retired Other Information That Helps Us Care for You: No Feels Safe at Home: Yes Safety Concerns: Feels Safe At This Time Assistive Devices: None Review of Systems Review of Systems: All systems reviewed & are unremarkable except as noted in HPI & below Physical Exam 2 Constitutional: WD/WN, vitals as above no acute distress Neck: normal visual inspection and trachea midline Respiratory: normal respiratory effort, lungs clear to auscultation Auscultation: + rales (BL); no rhonchi and no wheezes Cardiovascular: Rate/Rhythm: regular rate and regular rhythm Heart Sounds: normal S1, normal S2 and + murmur (+3/6 systolic murmur ) Vessels: no JVD Extremities: no edema Gastrointestinal (Abdomen): normal bowel sounds, soft, nontender, no hepatosplenomegaly Skin: no rashes, warm and dry Results & Data Vital Signs (Past 12 Hours) Vital Signs Temp Pulse Resp BP BP Pulse Ox O2 Del Method 06/09/23 02:15 70 06/09/23 02:00 36.6 C 18 136/81 92 Room Air 06/09/23 01:00 107 H 22 127/106 H 93 06/09/23 00:31 107 H 13 153/99 H 95 06/08/23 23:31 90 19 140/91 94 06/08/23 23:00 85 18 134/77 95 06/08/23 22:30 127/90 06/08/23 22:29 104 H 16 94 06/08/23 22:00 109/70 06/08/23 22:00 86 24 95 06/08/23 21:30 132 H 16 95 06/08/23 21:30 131/101 H 06/08/23 21:09 119 H 06/08/23 19:58 36.8 C 142 H 19 147/86 H 90 Room Air Laboratory Results Cardiac Enzymes 06/08/23 06/09/23 Range/Units 20:28 04:28 AST 30 (13-39) U/L Troponin I High Sens 16.3 H 17.2 H (0-14) pg/ml Coagulation 06/08/23 Range/Units 20:28 PT 10.9 (9.0-12.0) Seconds APTT 23.6 (21.0-31.0) Seconds CBC 06/08/23 06/09/23 Range/Units 20:28 04:28 WBC 8.27 6.03 (4.8-10.8) K/ul RBC 4.05 L 3.53 L (4.20-5.40) M/uL Hgb 12.7 11.1 L (12.0-16.0) g/dl Hct 38.5 33.7 L (37.0-47.0) % Plt Count 116 L 107 L (130-400) K/uL Neut # (Auto) 5.35 3.72 (1.40-6.50) K/uL Lymph # (Auto) 2.00 1.58 (1.20-3.40) K/uL [place] # (Auto) 0.74 H 0.57 (0.11-0.59) K/uL Eos # (Auto) 0.12 0.12 (0.00-0.50) K/uL Baso # (Auto) 0.04 0.03 (0.00-0.20) K/uL Comprehensive Metabolic Panel 06/08/23 06/09/23 Range/Units 20:28 04:28 Sodium 140 140 (136-145) mmol/L Potassium 3.9 3.8 (3.5-5.1) mmol/L Chloride 108 H 108 H (98-107) mmol/L Carbon Dioxide 26 28 (21-32) mmol/L BUN 16 14 (6-23) mg/dl Creatinine 0.83 0.76 (0.6-1.2) mg/dl Glucose 97 142 H (70-99(Fasting)) mg/dl Calcium 9.2 8.3 L (8.6-10.3) mg/dl AST 30 (13-39) U/L ALT 15 (7-52) U/L Alkaline Phosphatase 69 (34-104) U/L Total Protein 7.0 (6.0-8.3) gm/dl Albumin 3.9 (3.4-5.0) gm/dl Intake and Output 06/08/23 06/09/23 06/09/23 22:59 06:59 14:59 Intake Total 393.333 / 393.333 Output Total Balance 392.333 / 392.333 Intake: IV 153.333 / 153.333 Magnesium Sulfate / D5w 1 gm In 100 / 100 100 ml @ 50 mls/hr IV ONE ONE Rx#:[id number] Nss + 20Meq KCl 20 meq In 1,000 3.333 / 3.333 ml @ 50 mls/hr IV .Q20H ONE Rx #:[id number] cefTRIAXone SODIUM 1,000 mg In 50 / 50 Dextrose 5 % Mini-B 50 ml @ 100 mls/hr IV NOW STA Rx#:[id number] Oral 240 / 240 Output: # Bowel Movements Other: # Unmeasured Voids 1 Weight 75.7 kg 73.8 kg Weight Measurement Method Chair Scale Standing Scale Diagnostic Findings Outpatient echocardiogram 05/16/2023 The examination is adequate to evaluate the referral indication. The LV wall thickness is moderately increased (concentric). The qualitative LV ejection fraction is 65-69% (normal). The left ventricular diastolic function is moderately abnormal (grade II). There is an aortic valve bioprosthetic present. Significant aortic valve prosthesis regurgitation is absent. The aortic valve prosthesis systolic gradients are normal for this type prosthesis. There is moderate mitral annular calcification. There is focal thickening of the anterior mitral valve leaflet. The mitral valve leaflets thickness is moderately increased. Mitral stenosis is absent. Mild mitral regurgitation is present. Mild tricuspid regurgitation is present. Compared to the previous study performed 03/15/2021, there has been a slight increase in the CW Doppler velocity across the aortic valve prosthesis which was 2.5 meters/second in 2020, and is in the range of 3-3.2 m/s on the present study. Ongoing clinical and echocardiographic surveillance for prosthetic stenosis is recommended. (2) (HFpEF) heart failure with preserved ejection fraction Heart failure chronicity: chronic Qualified Code(s): I50.32 - Chronic diastolic (congestive) heart failure (3) Aortic valve stenosis Cardiac valve disease etiology: nonrheumatic Qualified Code(s): I35.0 - Nonrheumatic aortic (valve) stenosis
[2023-06-09] MEDS: MULTIVITAMIN TAB PO SCH (08:20)
[2023-06-09] MEDS: busPIRone 5 MG TAB PO PRN (08:21)
[2023-06-09] MEDS: SERTRALINE HCL 50 MG TABLET PO SCH (08:21)
[2023-06-09] MEDS: ROSUVASTATIN CALCIUM 20 MG TAB PO SCH (08:21)
[2023-06-09] MEDS: FAMOTIDINE 20 MG TAB PO SCH ×2 (08:21→20:41)
[2023-06-09] MEDS: ASPIRIN 81 MG ECTAB PO SCH (08:21)
[2023-06-09] MEDS ORDERED: METOPROLOL TARTRATE 25 MG TAB PO SCH (09:00)
[2023-06-09] MEDS ORDERED: INFLUENZA VACCINE HIGH-DOSE (HD-IIV4) PF 65+ 0.7mL SYR IM ONE (09:00)
--- NOTE | 2023-06-09 09:00 | Communication Note ---
Date of Service: June 09, 2023 Pt seen in the PM. Was resting comfortably. Noted that she came in as she felt like she was in a fib and confirmed with her son's apple watch. Denied any issues with early satiety or having to eat small meals, CT chest noted fluid filled hiatal hernia. CT abd/pelvis obtained as result and noted improvement in gastric distention. Stated that she was seen by cardiology in the AM and felt fine. Denied acute concerns. Will continue to monitor.
[2023-06-09 09:55] LABS: Partial Thromboplastin Ratio 1.7
[2023-06-09 09:57] LABS: Partial Thromboplastin Time 48.3 Seconds (21.0-31.0)
[2023-06-09] MEDS ORDERED: OPTIRAY 320 100ml IV ONE (11:02)
[2023-06-09] MEDS ORDERED: FUROSEMIDE INJ 20 MG/2 ML VIAL IV ONE (11:15)
--- NOTE | 2023-06-09 11:36 | CT Scan Report ---
CT OF THE ABDOMEN AND PELVIS WITH CONTRAST CLINICAL HISTORY: hiatal hernia filled with fluid COMPARISON STUDY: CT of the abdomen and pelvis June 21, 2015. Chest CT performed earlier today. TECHNIQUE: Following IV administration of 93 mL of Optiray, axial images of the abdomen and pelvis we re obtained from the lung bases to the proximal femurs. Images were reviewed in the axial, sagittal, and coronal planes. IV contrast was administered without complication. Automated exposure control wa s utilized for the study. A dose lowering technique was utilized adhering to the principles of ALARA . CT DOSE: 1074.06 mGy.cm FINDINGS: A large hiatal hernia with partially intrathoracic stomach is noted. Gastric distention has resolved since chest CT performed earlier today. There are trace bilateral pleural effusions. Subple ural opacities favor atelectasis. There is a 3.4 cm right hepatic lobe cyst. There is no biliary or p ancreatic ductal dilatation. There are small gallstones within the gallbladder without evidence for a cute cholecystitis. Spleen, adrenal glands and left kidney are normal. Pancreas is unremarkable. Ther e is a 2.3 cm cyst within the upper pole of the right kidney. There is excreted contrast within the u reters, collecting system and bladder from recent contrast-enhanced chest CT. No evidence for a bowel obstruction. There is sigmoid diverticulosis without evidence for acute diverticulitis. There is no lymphadenopathy. There is no ascites. No fluid collections are present. IMPRESSION: 1. Large hiatal hernia with partially intrathoracic stomach. Resolution of gastric distention since c hest CT performed earlier today. 2. No acute process within the abdomen or pelvis. 3. Cholelithiasis. 4. Sigmoid diverticulosis. No evidence for acute diverticulitis. ACT 112: Negative or not required by law. Electronically signed by: James Benz M.D. 06/09/2023 11:34 AM
--- NOTE | 2023-06-09 12:20 | Electrocardiogram Report ---
Test Reason : Blood Pressure : / mmHG Vent. Rate : 118 BPM Atrial Rate : 000 BPM P-R Int : 000 ms QRS Dur : 076 ms QT Int : 320 ms P-R-T Axes : 000 000 069 degrees QTc Int : 448 ms Atrial fibrillation with rapid ventricular response Minimal voltage criteria for LVH, may be normal variant Abnormal ECG When compared with ECG of 02-MAY-2018 06:24, Atrial fibrillation has replaced Sinus rhythm Vent. rate has increased BY 46 BPM Nonspecific T wave abnormality no longer evident in Inferior leads T wave inversion less evident in Anterolateral leads Confirmed by Anmol Jiang ([id number]) on 06/09/2023 12:20:30 PM Referred By: REFERRED SELF Confirmed By:Jorge Jiang
[2023-06-09] MEDS: SOTALOL HCL 80 MG TAB PO SCH ×2 (16:43→20:41)
--- NOTE | 2023-06-09 20:32 | Electrocardiogram Report ---
Test Reason : Blood Pressure : / mmHG Vent. Rate : 070 BPM Atrial Rate : 070 BPM P-R Int : 134 ms QRS Dur : 088 ms QT Int : 422 ms P-R-T Axes : 041 019 054 degrees QTc Int : 455 ms Normal sinus rhythm Possible Left atrial enlargement Left ventricular hypertrophy Abnormal ECG When compared with ECG of 08-JUN-2023 20:04, Sinus rhythm has replaced Atrial fibrillation Vent. rate has decreased BY 48 BPM Confirmed by Anmol Jiang ([id number]) on 06/09/2023 8:31:29 PM Referred By: REFERRED SELF Confirmed By:Jorge Jiang
[2023-06-09] MEDS: cefTRIAXone SODIUM 2,000 MG in DEXTROSE 5 % MINI-B 50 ML IV SCH (20:48)
[2023-06-09] MEDS ORDERED: METOPROLOL SUCC 25MG EXT REL TAB PO SCH (21:00)
[2023-06-10] MEDS ORDERED: Nursing to Pharmacy Communication SCH (05:45)
[2023-06-10] MEDS: LEVOTHYROXINE SODIUM 200 MCG TABLET PO SCH (06:02)
[2023-06-10] MEDS: HEPARIN SODIUM/DEXTROSE 25,000 UNITS/500 ML BAG IV SCH (06:36)
--- NOTE | 2023-06-10 06:51 | Cardiology Progress Note ---
Date of Service June 10, 2023 Assessment & Plan (1) Atrial fibrillation with rapid ventricular response: (2) (HFpEF) heart failure with preserved ejection fraction: (3) Aortic valve stenosis: (4) S/P AVR (aortic valve replacement): Plan IMPRESSION: 83-year-old female who presented to [facility] emergency department due to palpitations. Found to be in rapid atrial fibrillation. Patient carries a history of chronic diastolic CHF not requiring loop diuretic therapy, aortic stenosis status post AVR in 2018. Following her AVR she did experience an episode of atrial fibrillation--not previously on anticoagulation. History of a left atrial appendage clip placemen t following AVR. PLAN: PAF: Self converted to normal sinus rhythm on 06/09/2023 at approximately 2 AM. EKG this morning showing sinus rhythm, 63 bpm with a stable QTc of 466 ms. Continue sotalol load of 80 mg twice daily. Daily EKGs ordered. Monitor renal function and electrolytes. Replace potassium to goal of 4.0 and mag of 2.0. Recommend transition from IV heparin to Eliquis 5 mg BID (age greater than 80, weight greater than 60 kg, and scr under 1.5). HFpEF: Patient volume status improved with a single dose of 20 mg of IV Lasix. We will hold on further diuretic therapy at this time. Does not normally require loop diuretic use at home. Strict I&O, daily weights, 2g sodium diet. CHF EDU Case discussed with Dr. Gustafson-- will follow. Admission and Anticipated Discharge Date Admission Date: June 09, 2023 Supervising Physician Co-Signing Physician Notes Patient seen and personally examined. No acute complaints no arrhythmias on telemetry EKG without significant QT prolongation Patient has remained in sinus and tolerating sotalol well Antiarrhythmics discussed in detail with patient Exam as above Sinus rhythm with grade 2/6 to 3/6 systolic murmur, clear lung paige no edema Following serial EKGs Subjective 83-year-old female present to the ER with palpitations and irregular heartbeats. ECG on admission demonstrating atrial fibrillation with rapid ventricular response. Treated with IV metoprolol and diltiazem in the ER. Spontaneously converted to sinus rhythm 06/09/2023 ~0200. 06/09/2023: Anticoagulation with heparin drip Maintaining sinus rhythm, metoprolol succinate discontinued and sotalol 80 mg twice daily started. Mildly hypervolemic on exam, patient was given 20 mg of IV Lasix Echo, LVEF 65 to 70% with mild concentric LVH. Moderate mitral valve calcification with mild MR. Bioprosthetic aortic valve with normal gradients, no regurgitation. Mild TR 06/10/2023: Upon entrance into the room patient sleeping in bed, woke easily. No acute concerns. Denies chest pain, palpitations, lightheadedness. Notes improvement in her shortness of breath with the one-time dose of Lasix yesterday. No orthopnea or PND. No lower extremity edema EKG: Normal sinus rhythm, 63 bpm, QTc 466 ms Telemetry: Sinus rhythm in the 70s, no recurrent atrial fibrillation. Labs: Pending Weight: 75.2 kg >> 72.8 kg Review of Systems Review of Systems: All systems reviewed & are unremarkable except as noted in HPI & below Physical Exam Constitutional: WD/WN, vitals as above no acute distress Neck: normal visual inspection and trachea midline Respiratory: normal respiratory effort, lungs clear to auscultation Auscultation: + rales (BL); no rhonchi and no wheezes Cardiovascular: Rate/Rhythm: regular rate and regular rhythm Heart Sounds: normal S1, normal S2 and + murmur (+3/6 systolic murmur ) Vessels: no JVD Extremities: no edema Gastrointestinal (Abdomen): normal bowel sounds, soft, nontender, no hepatosplenomegaly Skin: no rashes, warm and dry Results & Data Vital Signs (Past 12 Hours) Vital Signs Temp Pulse Pulse Resp BP Pulse Ox O2 Del Method 06/10/23 03:44 36.7 C 58 L 16 172/90 H 93 Room Air 06/09/23 23:28 36.7 C 66 20 164/87 H 93 Room Air 06/09/23 22:45 74 06/09/23 19:40 36.4 C L 70 20 144/79 H 93 Room Air (2) (HFpEF) heart failure with preserved ejection fraction Heart failure chronicity: chronic Qualified Code(s): I50.32 - Chronic diastolic (congestive) heart failure (3) Aortic valve stenosis Cardiac valve disease etiology: nonrheumatic Qualified Code(s): I35.0 - Nonrheumatic aortic (valve) stenosis
[2023-06-10 07:00] LABS: Basophils # (auto) 0.04 K/uL (0.00-0.20); Basophils % (auto) 0.8 %; Eosinophils # (auto) 0.25 K/uL (0.00-0.50); Eosinophils % (auto) 5.1 %; Hematocrit (blood only) 38.4 % (37.0-47.0); Hemoglobin 12.9 g/dl (12.0-16.0); Immature Granulocytes # (auto) 0.01 K/uL (0.01-0.20); Immature Granulocytes % (auto) 0.2 %; Lymphocytes % (auto) 34.7 %; Mean Corpuscular Hemoglobin 31.8 pg (25.0-34.0); Mean Corpuscular Hgb Conc 33.6 g/dL (32.0-36.0); Mean Corpuscular Volume 94.6 fL (80.0-100.0); Monocytes # (auto) 0.33 K/uL (0.11-0.59); Monocytes % (auto) 6.7 %; Neutrophils # (auto) 2.57 K/uL (1.40-6.50); Neutrophils % (auto) 52.5 %; Platelet Count 122 K/uL (130-400); RDW Coefficient of Variation 13.4 % (11.5-14.5); RDW Standard Deviation 46.7 fL (36.4-46.3); Red Blood Count 4.06 M/uL (4.20-5.40)
[2023-06-10 07:44] LABS: Albumin Globulin Ratio 1.1 (0.9-2); Albumin Level 3.5 gm/dl (3.4-5.0); BUN Creatinine Ratio 17.4 (10-20); Bilirubin,Total 0.5 mg/dl (0.2-1.0); Calcium 8.7 mg/dl (8.6-10.3); Creatinine Clr Calc Pharmacy 45.1 ml/min; Est GFR (African American) 66.7 ml/min; Est GFR (Non-African American) 57.6 ml/min; Globulin 3.1 gm/dl (2.5-4.0); Phosphorus 3.6 mg/dl (2.5-4.9); Potassium 4.1 mmol/L (3.5-5.1); Total Protein 6.6 gm/dl (6.0-8.3)
[2023-06-10 08:12] LABS: Partial Thromboplastin Ratio 2.2
[2023-06-10 08:15] LABS: Partial Thromboplastin Time 62.8 Seconds (21.0-31.0)
[2023-06-10] MEDS: FAMOTIDINE 20 MG TAB PO SCH ×2 (08:55→20:16)
[2023-06-10] MEDS: ASPIRIN 81 MG ECTAB PO SCH (08:56)
[2023-06-10] MEDS: SERTRALINE HCL 50 MG TABLET PO SCH (08:56)
[2023-06-10] MEDS: MULTIVITAMIN TAB PO SCH (08:56)
[2023-06-10] MEDS: ROSUVASTATIN CALCIUM 20 MG TAB PO SCH (08:56)
[2023-06-10] MEDS: SOTALOL HCL 80 MG TAB PO SCH ×2 (08:59→20:16)
--- NOTE | 2023-06-10 09:07 | Hospitalist Progress Note ---
Date of Service June 10, 2023 Assessment & Plan (1) Atrial fibrillation with rapid ventricular response: Plan: Pt is an 83yoF with PMhx significant for history of diastolic dysfunction (EF 65%, TTE 2022), nonobstructive CAD as per records, aortic stenosis status post bioprosthetic AVR (2015), postop A-fib, hypertension, hyperlipidemia, hypothyroidism, GERD, left breast cancer status post surgery/chemotherapy, skin cancer as per records, anxiety/mood disorder, Paget's disease as per records, past tobacco abuse admitted with a fib with RVR. Atrial Fibrillation with RVR history of diastolic dysfunction (EF 65%, TTE 2022) hx nonobstructive CAD History postop A-fib, hx aortic stenosis status post bioprosthetic AVR (2015) Secondary to noncompliance with prescribed beta-tommie regimen frequency Rule out pulmonary embolism as precipitant given pleuritic chest pain complaints CT chest without PE Echo with EF 65-70%, LVH Troponin elevation secondary to above Currently on sotalol per cardiology, appreciate recs IV heparin for thromboembolic prophylaxis, transitioned to PO Eliquis Currently rate controlled HTN Stable hyperlipidemia on statin Rx Complicated UTI UA suggestive of infection Urine Cx pending Currently on Rocephin, follow Cx hypothyroidism TSH noted to be low with normal free T4 Stable, pcp f/u left breast cancer status post surgery Stable anxiety/mood disorder Stable, baseline symptoms New onset thrombocytopenia patient without overt bleeding symptoms Improving Diet: HH DVT prophylaxis: Currently on Eliquis Full code Dispo: PT/OT ordered Admission and Anticipated Discharge Date Admission Date: June 09, 2023 Subjective Pt was seen in the AM. Denied acute concerns, stated that she was just tired. Review of Systems Review of Systems: All systems reviewed & are unremarkable except as noted in Subjective Physical Exam Physical Exam: General: Alert, oriented. No acute distress Skin: No noted rashes or bruises Psych: Appropriate mood and affect Neuro: No gross deficits HEENT: NC/AT CV: RRR, murmur appreciated Resp: Breath sounds clear bilaterally, no increased effort of breathing. Abdomen: Soft, nontender, nondistended. Results & Data Results & Data Vital Signs (Past 12 Hours) Vital Signs Temp Pulse Pulse Resp BP Pulse Ox O2 Del Method 06/10/23 07:47 70 06/10/23 07:42 36.6 C 63 18 132/77 94 Room Air 06/10/23 03:44 36.7 C 58 L 16 172/90 H 93 Room Air 06/09/23 23:28 36.7 C 66 20 164/87 H 93 Room Air 06/09/23 22:45 74
[2023-06-10] MEDS: APIXABAN 5 MG TABLET PO SCH ×2 (10:12→20:16)
[2023-06-11] MEDS: cefTRIAXone SODIUM 2,000 MG in DEXTROSE 5 % MINI-B 50 ML IV SCH (01:03)
[2023-06-11] MEDS: LEVOTHYROXINE SODIUM 200 MCG TABLET PO SCH (06:15)
[2023-06-11 06:31] LABS: Basophils # (auto) 0.04 K/uL (0.00-0.20); Basophils % (auto) 0.7 %; Eosinophils # (auto) 0.28 K/uL (0.00-0.50); Eosinophils % (auto) 5.2 %; Hematocrit (blood only) 37.3 % (37.0-47.0); Hemoglobin 12.6 g/dl (12.0-16.0); Immature Granulocytes # (auto) 0.02 K/uL (0.01-0.20); Immature Granulocytes % (auto) 0.4 %; Lymphocytes # (auto) 1.78 K/uL (1.20-3.40); Mean Corpuscular Hemoglobin 31.7 pg (25.0-34.0); Mean Corpuscular Hgb Conc 33.8 g/dL (32.0-36.0); Monocytes # (auto) 0.49 K/uL (0.11-0.59); Monocytes % (auto) 9.1 %; Neutrophils # (auto) 2.78 K/uL (1.40-6.50); Neutrophils % (auto) 51.6 %; Platelet Count 137 K/uL (130-400); RDW Coefficient of Variation 13.3 % (11.5-14.5); RDW Standard Deviation 45.9 fL (36.4-46.3); Red Blood Count 3.97 M/uL (4.20-5.40); White Blood Count 5.39 K/ul (4.8-10.8)
[2023-06-11 06:32] LABS: Albumin Globulin Ratio 1.2 (0.9-2); Albumin Level 3.3 gm/dl (3.4-5.0); BUN Creatinine Ratio 25.4 (10-20); Bilirubin,Total 0.4 mg/dl (0.2-1.0); Calcium 8.5 mg/dl (8.6-10.3); Creatinine Clr Calc Pharmacy 65.8 ml/min; Est GFR (African American) 96.1 ml/min; Est GFR (Non-African American) 82.9 ml/min; Globulin 2.7 gm/dl (2.5-4.0); Magnesium 1.9 mg/dl (1.7-2.4); Phosphorus 3.8 mg/dl (2.5-4.9); Potassium 4.1 mmol/L (3.5-5.1)
[2023-06-11] MEDS: MULTIVITAMIN TAB PO SCH (08:47)
[2023-06-11] MEDS: SOTALOL HCL 80 MG TAB PO SCH ×2 (08:47→20:03)
[2023-06-11] MEDS: ASPIRIN 81 MG ECTAB PO SCH (08:47)
[2023-06-11] MEDS: APIXABAN 5 MG TABLET PO SCH ×2 (08:47→20:03)
[2023-06-11] MEDS: SERTRALINE HCL 50 MG TABLET PO SCH (08:47)
[2023-06-11] MEDS: ROSUVASTATIN CALCIUM 20 MG TAB PO SCH (08:47)
[2023-06-11] MEDS: FAMOTIDINE 20 MG TAB PO SCH ×2 (08:47→20:03)
--- NOTE | 2023-06-11 11:01 | Cardiology Progress Note ---
Date of Service June 11, 2023 Assessment & Plan (1) Atrial fibrillation with rapid ventricular response: (2) (HFpEF) heart failure with preserved ejection fraction: (3) Aortic valve stenosis: (4) S/P AVR (aortic valve replacement): Plan IMPRESSION: 83-year-old female who presented to [facility] emergency department due to palpitations. Found to be in rapid atrial fibrillation. Patient carries a history of chronic diastolic CHF not requiring loop diuretic therapy, aortic stenosis status post AVR in 2018. Following her AVR she did experience an episode of atrial fibrillation--not previously on anticoagulation. History of a left atrial appendage clip placemen t following AVR. PLAN: PAF: Self converted to normal sinus rhythm on 06/09/2023 at approximately 2 AM. EKG this morning showing sinus rhythm, 63 bpm with a stable QTc of 466 ms. Continue sotalol load of 80 mg twice daily. Daily EKGs ordered. Monitor renal function and electrolytes. Replace potassium to goal of 4.0 and mag of 2.0. Recommend transition from IV heparin to Eliquis 5 mg BID (age greater than 80, weight greater than 60 kg, and scr under 1.5). HFpEF: Patient volume status improved with a single dose of 20 mg of IV Lasix. We will hold on further diuretic therapy at this time. Does not normally require loop diuretic use at home. Strict I&O, daily weights, 2g sodium diet. CHF EDU 06/11/2023 Patient clinically stable EKG without QT prolongation Continue sotalol with repeat EKG in a.m. with anticipated discharge at that time Still with persistent hypertension. We will add amlodipine 2.5 mg nightly Admission and Anticipated Discharge Date Admission Date: June 09, 2023 Subjective Patient chart and telemetry reviewed Results & Data Vital Signs (Past 12 Hours) Vital Signs Temp Pulse Pulse Resp BP Pulse Ox O2 Del Method 06/11/23 07:43 36.7 C 61 18 157/90 H 95 Room Air 06/11/23 07:20 58 L 06/11/23 03:00 36.5 C 67 16 155/75 H 94 Room Air Diagnostic Findings Laboratory Results - last 24 hr 06/11/23 04:59 WBC 5.39 RBC 3.97 L Hgb 12.6 Hct 37.3 MCV 94.0 MCH 31.7 MCHC 33.8 RDW Std Deviation 45.9 RDW Coeff of Mary 13.3 Plt Count 137 MPV 13.0 H Immature Gran % (Auto) 0.4 Neut % (Auto) 51.6 Lymph % (Auto) 33.0 [place] % (Auto) 9.1 Eos % (Auto) 5.2 Baso % (Auto) 0.7 Neut # (Auto) 2.78 Lymph # (Auto) 1.78 [place] # (Auto) 0.49 Eos # (Auto) 0.28 Baso # (Auto) 0.04 Immature Gran # (Auto) 0.02 Sodium 140 Potassium 4.1 Chloride 108 H Carbon Dioxide 27 Anion Gap 5 BUN 16 Creatinine 0.63 Est Cr Clr Drug Dosing 65.8 Est GFR ( Amer) 96.1 Est GFR (Non-Af Amer) 82.9 BUN/Creatinine Ratio 25.4 H Glucose 93 Calcium 8.5 L Ionized Calcium 1.17 Phosphorus 3.8 Magnesium 1.9 Total Bilirubin 0.4 AST 24 ALT 13 Alkaline Phosphatase 56 Total Protein 6.0 Albumin 3.3 L Globulin 2.7 Albumin/Globulin Ratio 1.2 (2) (HFpEF) heart failure with preserved ejection fraction Heart failure chronicity: chronic Qualified Code(s): I50.32 - Chronic diastolic (congestive) heart failure (3) Aortic valve stenosis Cardiac valve disease etiology: nonrheumatic Qualified Code(s): I35.0 - Nonrheumatic aortic (valve) stenosis
--- NOTE | 2023-06-11 12:03 | Hospitalist Progress Note ---
Date of Service June 11, 2023 Assessment & Plan (1) Atrial fibrillation with rapid ventricular response: Plan: Pt is an 83yoF with PMhx significant for history of diastolic dysfunction (EF 65%, TTE 2022), nonobstructive CAD as per records, aortic stenosis status post bioprosthetic AVR (2015), postop A-fib, hypertension, hyperlipidemia, hypothyroidism, GERD, left breast cancer status post surgery/chemotherapy, skin cancer as per records, anxiety/mood disorder, Paget's disease as per records, past tobacco abuse admitted with a fib with RVR. Atrial Fibrillation with RVR history of diastolic dysfunction (EF 65%, TTE 2022) hx nonobstructive CAD History postop A-fib, hx aortic stenosis status post bioprosthetic AVR (2015) Secondary to noncompliance with prescribed beta-tommie regimen frequency Rule out pulmonary embolism as precipitant given pleuritic chest pain complaints CT chest without PE Echo with EF 65-70%, LVH Troponin elevation secondary to above Currently on sotalol per cardiology, appreciate recs for discharge IV heparin for thromboembolic prophylaxis, transitioned to PO Eliquis Currently rate controlled HTN Stable hyperlipidemia on statin Rx Complicated UTI UA suggestive of infection Urine Cx pending Currently on Rocephin, follow Cx hypothyroidism TSH noted to be low with normal free T4 Stable, pcp f/u left breast cancer status post surgery Stable anxiety/mood disorder Stable, baseline symptoms New onset thrombocytopenia patient without overt bleeding symptoms Improving Diet: HH DVT prophylaxis: Currently on Eliquis Full code Dispo: PT/OT ordered Admission and Anticipated Discharge Date Admission Date: June 09, 2023 Subjective Pt seen in the AM. States that she is doing well, just overwhelmed as her is also hospitalized. States that she is not yet ready to go home. States that the fluttering in her heart has improved. Review of Systems Review of Systems: All systems reviewed & are unremarkable except as noted in Subjective Physical Exam Physical Exam: General: Alert, oriented. No acute distress Skin: No noted rashes or bruises Psych: Appropriate mood and affect Neuro: No gross deficits HEENT: NC/AT CV: RRR, murmur appreciated Resp: Breath sounds clear bilaterally, no increased effort of breathing. Abdomen: Soft, nontender, nondistended. Results & Data Results & Data Vital Signs (Past 12 Hours) Vital Signs Temp Pulse Pulse Resp BP Pulse Ox O2 Del Method 06/11/23 07:43 36.7 C 61 18 157/90 H 95 Room Air 06/11/23 07:20 58 L 06/11/23 03:00 36.5 C 67 16 155/75 H 94 Room Air
--- NOTE | 2023-06-11 18:06 | Electrocardiogram Report ---
Test Reason : Blood Pressure : / mmHG Vent. Rate : 063 BPM Atrial Rate : 063 BPM P-R Int : 142 ms QRS Dur : 092 ms QT Int : 456 ms P-R-T Axes : 042 013 063 degrees QTc Int : 466 ms Normal sinus rhythm Voltage criteria for left ventricular hypertrophy Abnormal ECG When compared with ECG of 09-JUN-2023 08:09, No significant change was found Confirmed by Thomas Diez ([id number]) on 06/11/2023 6:06:35 PM Referred By: REFERRED SELF Confirmed By:Thomas Diez
--- NOTE | 2023-06-11 18:15 | Electrocardiogram Report ---
Test Reason : Blood Pressure : / mmHG Vent. Rate : 062 BPM Atrial Rate : 062 BPM P-R Int : 148 ms QRS Dur : 086 ms QT Int : 466 ms P-R-T Axes : 050 028 069 degrees QTc Int : 472 ms Normal sinus rhythm Voltage criteria for left ventricular hypertrophy Abnormal ECG When compared with ECG of 10-JUN-2023 05:58, (unconfirmed) No significant change was found Confirmed by Thomas Diez ([id number]) on 06/11/2023 6:15:21 PM Referred By: REFERRED SELF Confirmed By:Thomas Diez
[2023-06-11] MEDS: busPIRone 5 MG TAB PO PRN (20:03)
[2023-06-11] MEDS ORDERED: amLODIPine BESYLATE 5 MG TAB PO SCH (21:00)
--- NOTE | 2023-06-11 22:21 | Electrocardiogram Report ---
Test Reason : Blood Pressure : / mmHG Vent. Rate : 058 BPM Atrial Rate : 058 BPM P-R Int : 144 ms QRS Dur : 088 ms QT Int : 466 ms P-R-T Axes : 048 017 059 degrees QTc Int : 457 ms V6 probably mis-placed Sinus bradycardia Possible Left atrial enlargement Left ventricular hypertrophy Abnormal ECG When compared with ECG of 10-JUN-2023 11:01, (unconfirmed) No significant change was found Confirmed by Thomas Diez ([id number]) on 06/11/2023 10:20:27 PM Referred By: REFERRED SELF Confirmed By:Thomas Diez
[2023-06-12] MEDS: cefTRIAXone SODIUM 2,000 MG in DEXTROSE 5 % MINI-B 50 ML IV SCH (00:39)
[2023-06-12] MEDS: LEVOTHYROXINE SODIUM 200 MCG TABLET PO SCH (05:57)
[2023-06-12 06:46] LABS: Basophils # (auto) 0.04 K/uL (0.00-0.20); Basophils % (auto) 0.8 %; Eosinophils # (auto) 0.29 K/uL (0.00-0.50); Eosinophils % (auto) 5.6 %; Hematocrit (blood only) 38.5 % (37.0-47.0); Immature Granulocytes # (auto) 0.01 K/uL (0.01-0.20); Immature Granulocytes % (auto) 0.2 %; Lymphocytes # (auto) 1.73 K/uL (1.20-3.40); Lymphocytes % (auto) 33.6 %; Mean Corpuscular Hemoglobin 31.4 pg (25.0-34.0); Mean Corpuscular Hgb Conc 33.8 g/dL (32.0-36.0); Mean Platelet Volume 12.3 fL (9.4-12.4); Monocytes # (auto) 0.47 K/uL (0.11-0.59); Monocytes % (auto) 9.1 %; Neutrophils # (auto) 2.61 K/uL (1.40-6.50); Neutrophils % (auto) 50.7 %; Platelet Count 149 K/uL (130-400); RDW Standard Deviation 44.8 fL (36.4-46.3); Red Blood Count 4.14 M/uL (4.20-5.40); White Blood Count 5.15 K/ul (4.8-10.8)
[2023-06-12 06:54] LABS: Albumin Globulin Ratio 1.2 (0.9-2); Albumin Level 3.3 gm/dl (3.4-5.0); BUN Creatinine Ratio 22.1 (10-20); Bilirubin,Total 0.4 mg/dl (0.2-1.0); Calcium 8.6 mg/dl (8.6-10.3); Creatinine Clr Calc Pharmacy 48.2 ml/min; Est GFR (African American) 72.4 ml/min; Est GFR (Non-African American) 62.5 ml/min; Globulin 2.8 gm/dl (2.5-4.0); Magnesium 1.9 mg/dl (1.7-2.4); Phosphorus 3.4 mg/dl (2.5-4.9); Potassium 3.9 mmol/L (3.5-5.1); Total Protein 6.1 gm/dl (6.0-8.3)
[2023-06-12] MEDS: MULTIVITAMIN TAB PO SCH (08:34)
[2023-06-12] MEDS: ROSUVASTATIN CALCIUM 20 MG TAB PO SCH (08:34)
[2023-06-12] MEDS: SERTRALINE HCL 50 MG TABLET PO SCH (08:34)
[2023-06-12] MEDS: ASPIRIN 81 MG ECTAB PO SCH (08:34)
[2023-06-12] MEDS: APIXABAN 5 MG TABLET PO SCH (08:35)
[2023-06-12] MEDS: SOTALOL HCL 80 MG TAB PO SCH (08:35)
[2023-06-12] MEDS: busPIRone 5 MG TAB PO PRN (08:35)
[2023-06-12] MEDS: FAMOTIDINE 20 MG TAB PO SCH (08:35)
--- NOTE | 2023-06-12 09:44 | Cardiology Progress Note ---
Date of Service June 12, 2023 Assessment & Plan (1) Atrial fibrillation with rapid ventricular response: (2) (HFpEF) heart failure with preserved ejection fraction: (3) Aortic valve stenosis: (4) S/P AVR (aortic valve replacement): Plan IMPRESSION: 83-year-old female who presented to [facility] emergency department due to palpitations. Found to be in rapid atrial fibrillation. Patient carries a history of chronic diastolic CHF not requiring loop diuretic therapy, aortic stenosis status post AVR in 2018. Following her AVR she did experience an episode of atrial fibrillation--not previously on anticoagulation. History of a left atrial appendage clip placemen t following AVR. PLAN: PAF: Self converted to normal sinus rhythm on 06/09/2023 at approximately 2 AM. EKG this morning showing sinus rhythm, 63 bpm with a stable QTc of 466 ms. Continue sotalol load of 80 mg twice daily. Daily EKGs ordered. Monitor renal function and electrolytes. Replace potassium to goal of 4.0 and mag of 2.0. Recommend transition from IV heparin to Eliquis 5 mg BID (age greater than 80, weight greater than 60 kg, and scr under 1.5). HFpEF: Patient volume status improved with a single dose of 20 mg of IV Lasix. We will hold on further diuretic therapy at this time. Does not normally require loop diuretic use at home. Strict I&O, daily weights, 2g sodium diet. CHF EDU 06/11/2023 Patient clinically stable EKG without QT prolongation Continue sotalol with repeat EKG in a.m. with anticipated discharge at that time Still with persistent hypertension. We will add amlodipine 2.5 mg nightly 06/12/2023 Patient clinically stable no further arrhythmias tolerating sotalol well. Stable for discharge on sotalol 80 mg twice per day. Metoprolol discontinued Amlodipine 2.5 mg nightly added for blood pressure control We will arrange for cardiology follow-up 2 to 4 weeks Admission and Anticipated Discharge Date Admission Date: June 09, 2023 Subjective Patient seen and examined, chart, medications, telemetry reviewed No arrhythmias on telemetry patient maintaining sinus rhythm No QT prolongation on EKG with sotalol being Blood pressure mildly elevated but received first dose of amlodipine last evening Review of Systems Review of Systems: All systems reviewed & are unremarkable except as noted in Subjective Physical Exam Constitutional: WD/WN, vitals as above Eyes: PERRL, conjunctivae normal, anicteric sclerae Neck: trachea midline, no thyromegaly Respiratory: normal respiratory effort, lungs clear to auscultation Cardiovascular: Rate/Rhythm: regular rate and regular rhythm Heart Sounds: normal S1, normal S2 and + murmur Vessels: no JVD Extremities: no edema Gastrointestinal (Abdomen): normal bowel sounds, soft, nontender, no hepatosplenomegaly Musculoskeletal: no cyanosis or clubbing, extremities motor strength 5/5 Results & Data Vital Signs (Past 12 Hours) Vital Signs Temp Pulse Pulse Resp BP Pulse Ox O2 Del Method 06/12/23 07:58 62 06/12/23 07:35 36.8 C 64 18 148/90 H 94 Room Air 06/12/23 03:09 36.8 C 69 14 146/87 H 95 Room Air 06/11/23 23:22 36.7 C 70 14 162/90 H 94 Room Air 06/11/23 22:01 64 Laboratory Results Laboratory Results - last 24 hr 06/12/23 05:45 WBC 5.15 RBC 4.14 L Hgb 13.0 Hct 38.5 MCV 93.0 MCH 31.4 MCHC 33.8 RDW Std Deviation 44.8 RDW Coeff of Mary 13.0 Plt Count 149 MPV 12.3 Immature Gran % (Auto) 0.2 Neut % (Auto) 50.7 Lymph % (Auto) 33.6 [place] % (Auto) 9.1 Eos % (Auto) 5.6 Baso % (Auto) 0.8 Neut # (Auto) 2.61 Lymph # (Auto) 1.73 [place] # (Auto) 0.47 Eos # (Auto) 0.29 Baso # (Auto) 0.04 Immature Gran # (Auto) 0.01 Sodium 140 Potassium 3.9 Chloride 108 H Carbon Dioxide 27 Anion Gap 5 BUN 19 Creatinine 0.86 Est Cr Clr Drug Dosing 48.2 Est GFR ( Amer) 72.4 Est GFR (Non-Af Amer) 62.5 BUN/Creatinine Ratio 22.1 H Glucose 94 Calcium 8.6 Ionized Calcium 1.16 Phosphorus 3.4 Magnesium 1.9 Total Bilirubin 0.4 AST 21 ALT 12 Alkaline Phosphatase 56 Total Protein 6.1 Albumin 3.3 L Globulin 2.8 Albumin/Globulin Ratio 1.2 ECG Additional Comments: 12-JUN-2023 04:55:13 [facility] ROUTINE RETRIEVAL Normal sinus rhythm Possible Left atrial enlargement Borderline ECG When compared with ECG of 11-JUN-2023 04:26, No significant change was found QTc 464 (2) (HFpEF) heart failure with preserved ejection fraction Heart failure chronicity: chronic Qualified Code(s): I50.32 - Chronic diastolic (congestive) heart failure (3) Aortic valve stenosis Cardiac valve disease etiology: nonrheumatic Qualified Code(s): I35.0 - Nonrheumatic aortic (valve) stenosis
--- NOTE | 2023-06-12 13:09 | Electrocardiogram Report ---
Test Reason : Blood Pressure : / mmHG Vent. Rate : 063 BPM Atrial Rate : 063 BPM P-R Int : 140 ms QRS Dur : 080 ms QT Int : 454 ms P-R-T Axes : 045 016 066 degrees QTc Int : 464 ms Normal sinus rhythm Possible Left atrial enlargement Borderline ECG When compared with ECG of 11-JUN-2023 04:26, No significant change was found Confirmed by Gaston Schaeffer ([id number]) on 06/12/2023 1:09:16 PM Referred By: REFERRED SELF Confirmed By:Gaston Schaeffer
--- NOTE | 2023-06-12 15:10 | Hospitalist Progress Note ---
Date of Service June 12, 2023 Assessment & Plan (1) Atrial fibrillation with rapid ventricular response: Plan: Pt is an 83yoF with PMhx significant for history of diastolic dysfunction (EF 65%, TTE 2022), nonobstructive CAD as per records, aortic stenosis status post bioprosthetic AVR (2015), postop A-fib, hypertension, hyperlipidemia, hypothyroidism, GERD, left breast cancer status post surgery/chemotherapy, skin cancer as per records, anxiety/mood disorder, Paget's disease as per records, past tobacco abuse admitted with a fib with RVR. Atrial Fibrillation with RVR history of diastolic dysfunction (EF 65%, TTE 2022) hx nonobstructive CAD History postop A-fib, hx aortic stenosis status post bioprosthetic AVR (2015) Secondary to noncompliance with prescribed beta-tommie regimen frequency Rule out pulmonary embolism as precipitant given pleuritic chest pain complaints CT chest without PE Echo with EF 65-70%, LVH Troponin elevation secondary to above Currently on sotalol per cardiology, appreciate recs for discharge IV heparin for thromboembolic prophylaxis, transitioned to PO Eliquis Currently rate controlled Heart rate is controlled with current medication including sotalol Has been getting Eliquis and the patient is willing to continue with Eliquis knowing that the cost will be around $233 a month She will be discharged home this afternoon HTN Stable hyperlipidemia on statin Rx Complicated UTI UA suggestive of infection Urine Cx pending Currently on Rocephin, follow Cx Urine culture has been negative and antibiotic will be discontinued hypothyroidism TSH noted to be low with normal free T4 Stable, pcp f/u left breast cancer status post surgery Stable anxiety/mood disorder Stable, baseline symptoms New onset thrombocytopenia patient without overt bleeding symptoms Improving-platelet count has been normalized Diet: HH DVT prophylaxis: Currently on Eliquis Full code Dispo: PT/OT ordered-appreciate input and recommendation Will be discharged home this afternoon Admission and Anticipated Discharge Date Admission Date: June 09, 2023 Subjective 06/12/2023 The patient was seen and examined in telemetry unit She has been out of bed on a chair and denies any complaints Denies any palpitation, shortness of breath or chest pain No abdominal pain,nausea and or vomiting Review of Systems Review of Systems: All systems reviewed and are unremarkable except as noted below Physical Exam Physical Exam: Sitting on a chair without any acute distress Constitutional: well developed, well nourished and average body habitus; not ill appearing Eyes: PERRL, conjunctivae normal, anicteric sclerae ENMT: external ear and nose normal, oropharynx normal Neck: trachea midline, no thyromegaly Respiratory: no respiratory distress Auscultation: lungs clear to auscultation bilaterally Cardiovascular: Rate/Rhythm: regular rate and regular rhythm; not tachycardic Heart Sounds: normal S1 and normal S2; no murmur Extremities: no edema Gastrointestinal (Abdomen): Inspection/Auscultation: normal bowel sounds; abdomen not distended Percussion/Palpation: abdomen soft; abdomen nontender Musculoskeletal: No acute arthritis involving any of the joint Neurologic: normal touch/pain/proprioception and moves all extremities; no focal motor deficits Psychiatric: A+Ox3, euthymic affect Results & Data Results & Data Vital Signs (Past 12 Hours) Vital Signs Temp Pulse Pulse Resp BP Pulse Ox O2 Del Method 06/12/23 11:38 36.7 C 62 17 112/76 96 Room Air 06/12/23 07:58 62 06/12/23 07:35 36.8 C 64 18 148/90 H 94 Room Air 06/12/23 03:09 36.8 C 69 14 146/87 H 95 Room Air Laboratory Results Short CBC 06/12/23 Range/Units 05:45 WBC 5.15 (4.8-10.8) K/ul Hgb 13.0 (12.0-16.0) g/dl Hct 38.5 (37.0-47.0) % Plt Count 149 (130-400) K/uL BMP 06/12/23 05:45 Sodium 140 Potassium 3.9 Chloride 108 H Carbon Dioxide 27 BUN 19 Creatinine 0.86 Glucose 94 Calcium 8.6 Liver Function 06/12/23 Range/Units 05:45 Total Bilirubin 0.4 (0.2-1.0) mg/dl AST 21 (13-39) U/L ALT 12 (7-52) U/L Alkaline Phosphatase 56 (34-104) U/L Albumin 3.3 L (3.4-5.0) gm/dl Medications Administered Current Inpatient Medications Acetaminophen (Acetaminophen 325 Mg Tab) 650 mg PO Q4H PRN PRN Reason: Pain or Fever Stop: 07/09/23 02:00 Amlodipine Besylate (Amlodipine Besylate 5 Mg Tab) 2.5 mg PO QPM TED Stop: 07/11/23 20:59 Last Admin: 06/11/23 20:02 Dose: 2.5 mg Apixaban (Apixaban 5 Mg Tablet) 5 mg PO BID TED Stop: 07/10/23 08:59 Last Admin: 06/12/23 08:35 Dose: 5 mg Aspirin (Aspirin 81 Mg Ectab) 81 mg PO DAILY TED Stop: 07/09/23 08:59 Last Admin: 06/12/23 08:34 Dose: 81 mg Buspirone HCl (Buspirone 5 Mg Tab) 10 mg PO TID PRN PRN Reason: Anxiety Stop: 07/09/23 02:00 Last Admin: 06/12/23 08:35 Dose: 10 mg Famotidine (Famotidine 20 Mg Tab) 20 mg PO Q12 TED Stop: 07/09/23 08:59 Last Admin: 06/12/23 08:35 Dose: 20 mg Promethazine HCl 6.25 mg/ (Sodium Chloride) 50.25 mls @ 201 mls/hr IV Q6H PRN PRN Reason: Nausea And Vomiting Stop: 07/09/23 00:38 Ceftriaxone Sodium 2,000 mg/ (Dextrose) 50 mls @ 100 mls/hr IV Q24H TED; Protocol Stop: 06/20/23 00:59 Last Infusion: 06/12/23 01:09 Dose: Infused Levothyroxine Sodium (Levothyroxine Sodium 200 Mcg Tablet) 200 mcg PO DAILYBB TED Stop: 07/09/23 06:29 Last Admin: 06/12/23 05:57 Dose: 200 mcg Multivitamins (Multivitamin Tab) 1 tab PO DAILY TED Stop: 07/09/23 08:59 Last Admin: 06/12/23 08:34 Dose: 1 tab Rosuvastatin Calcium (Rosuvastatin Calcium 20 Mg Tab) 40 mg PO QAM TED Stop: 07/09/23 08:59 Last Admin: 06/12/23 08:34 Dose: 40 mg Sertraline HCl (Sertraline Hcl 50 Mg Tablet) 150 mg PO QAM [facility] Stop: 07/09/23 08:59 Last Admin: 06/12/23 08:34 Dose: 150 mg Sotalol HCl (Sotalol Hcl 80 Mg Tab) 80 mg PO BID TED Stop: 07/09/23 16:59 Last Admin: 06/12/23 08:35 Dose: 80 mg Tramadol HCl (Tramadol Hcl 50 Mg Tablet) 25 mg PO Q4H PRN PRN Reason: Pain Stop: 07/09/23 00:38
--- NOTE | 2023-06-13 08:19 | Discharge Summary ---
Date of Service June 12, 2023 Admission HPI Per Admitting Provider History obtained from patient, family, and records. Medical history significant for history of diastolic dysfunction (EF 65%, TTE 2022), nonobstructive CAD as per records, aortic stenosis status post bioprosthetic AVR (2015), postop A-fib, hypertension, hyperlipidemia, hypothyroidism, GERD, left breast cancer status post surgery/chemotherapy, skin cancer as per records, anxiety/mood disorder, Paget's disease as per records, past tobacco abuse. Last confinement April 2018 for pleural effusion. 1 week history of intermittent chest palpitations, SOB more pronounced on exertion. No unusual cough symptoms. Pleuritic left-sided chest discomfort. No unusual fluid retention. Some stress with 's medical issues. No inordinate caffeine intake. Patient taking metoprolol 25 mg p.o. daily instead of 12.5 mg p.o. twice daily as instructed for some time now. Few days history of bladder discomfort without flank pain or hematuria complaints. No fever, no chills. Patient mentioned palpitation symptoms to son yesterday while visiting her at rehab hospital. A-fib noted on son's watch dinora. Patient consulted ER for evaluation. Medical History as above Surgical History : Left atrial appendage clipping, left mastectomy, knee surgery, bioprosthetic AVR, tonsillectomy Family History : Heart disease, dementia, skin cancer Personal/Social history : Past tobacco abuse, rare EtOH intake, retired preschool assistant/assistant signal maintainer Admission Exam Per Admitting Provider Physical Exam: GENERAL: Comfortable, pleasant, looks younger than stated age, no respiratory distress SKIN: Normal color, warm HEENT: Bespectacled, [place] palpebral conjunctivae, no ptosis, moist buccal mucosa NECK : Supple, no tenderness CHEST : Decreased breath sounds, no tenderness HEART : Irregular, systolic murmur ABDOMEN: Some distention, nontender EXTREMITIES : Minimal LE swelling, no LE tenderness, no other conspicuous deformities noted NEUROLOGIC : Coherent, no facial asymmetry, no other gross focality Principal Diagnosis Atrial fibrillation with rapid ventricular response, hypertension, hypothyroidism Discharge Exam Sitting on a chair without any acute distress Constitutional well developed, well nourished and average body habitus; not ill appearing Eyes PERRL, conjunctivae normal, anicteric sclerae ENMT external ear and nose normal, oropharynx normal Neck trachea midline, no thyromegaly Respiratory no respiratory distress Auscultation: lungs clear to auscultation bilaterally Cardiovascular Rate/Rhythm: regular rate and regular rhythm; not tachycardic Heart Sounds: normal S1 and normal S2; no murmur Extremities: no edema Gastrointestinal (Abdomen) Inspection/Auscultation: normal bowel sounds; abdomen not distended Percussion/Palpation: abdomen soft; abdomen nontender Neurologic normal touch/pain/proprioception and moves all extremities; no focal motor deficits Psychiatric A+Ox3, euthymic affect Discharge Data Allergies Allergy/AdvReac Type Severity Reaction Status Date / Time Sulfa (Sulfonamide AdvReac Intermediate Nausea & Verified 06/08/23 23:05 Antibiotics) Vomiting amoxicillin AdvReac Mild decreased Verified 06/08/23 23:05 sensation of smell and taste clavulanic acid AdvReac Mild decreased Verified 06/08/23 23:05 sensation of smell and taste Consultations 06/08/23 23:25 ED Decision to Admit Stat 06/09/23 02:01 Consult Cardiology Routine Ordered Studies 06/09/23 00:33 CT angio chest PE protocol Stat 06/09/23 09:01 CT abd pelvis IV con only Urgent Hospital Course (1) Atrial fibrillation with rapid ventricular response: Pt is an 83yoF with PMhx significant for history of diastolic dysfunction (EF 65%, TTE 2022), nonobstructive CAD as per records, aortic stenosis status post bioprosthetic AVR (2015), postop A-fib, hypertension, hyperlipidemia, hypothyroidism, GERD, left breast cancer status post surgery/chemotherapy, skin cancer as per records, anxiety/mood disorder, Paget's disease as per records, past tobacco abuse admitted with a fib with RVR. Atrial Fibrillation with RVR history of diastolic dysfunction (EF 65%, TTE 2022) hx nonobstructive CAD History postop A-fib, hx aortic stenosis status post bioprosthetic AVR (2015) Secondary to noncompliance with prescribed beta-tmomie regimen frequency Rule out pulmonary embolism as precipitant given pleuritic chest pain complaints CT chest without PE Echo with EF 65-70%, LVH Troponin elevation secondary to above Currently on sotalol per cardiology, appreciate recs for discharge IV heparin for thromboembolic prophylaxis, transitioned to PO Eliquis Currently rate controlled Heart rate is controlled with current medication including sotalol Has been getting Eliquis and the patient is willing to continue with Eliquis knowing that the cost will be around $233 a month She will be discharged home this afternoon HTN Stable hyperlipidemia on statin Rx Complicated UTI UA suggestive of infection Urine Cx pending Currently on Rocephin, follow Cx Urine culture has been negative and antibiotic will be discontinued hypothyroidism TSH noted to be low with normal free T4 Stable, pcp f/u left breast cancer status post surgery Stable anxiety/mood disorder Stable, baseline symptoms New onset thrombocytopenia patient without overt bleeding symptoms Improving-platelet count has been normalized Diet: HH DVT prophylaxis: Currently on Eliquis Full code Dispo: PT/OT ordered-appreciate input and recommendation Will be discharged home this afternoon Total Time Total Time Spent Total Time Spent (In Minutes): 35 minutes Discharge Plan Discharge Items Patient Disposition: Home - Self-Care Reason For Visit: AF Discharge Diagnosis: Atrial fibrillation with rapid ventricular response, hypertension, hypothyroidism Condition on Discharge: Good Activity: Resume your previous activity Non-emergency contact: Primary Care Provider Call non-emergency contact if: you have any medication questions and your symptoms worsen Follow-up/Referrals: Fidencio Gustafson MD [Physician] - (The Cardiology office will contact you for a follow up appointment.) Helio Muse MD [Primary Care Provider] - (Date & Time 06/19/2023 10:40 AM Provider Helio Muse MD [facility] ) Diet: Heart Healthy Addtl Attending Provider Instructions: Please take precautions to avoid falls Take your medications as advised Take your Eliquis regularly Please keep appointments with your healthcare provider Pending Studies at Discharge: No Stand-Alone Forms: My [facility] [employer] Kids, Smoking Cessation Medications and DC Order Prescriptions: New Eliquis 5 mg Tablet 5 mg PO BID Qty: 60 0RF Rx Instructions: Take 1 tablet by mouth twice a day. sotalol 80 mg Tablet 80 mg PO BID Qty: 60 0RF amlodipine [Norvasc] 5 mg Tablet 2.5 mg PO QPM Qty: 30 0RF Continued multivitamin Tablet 1 tab PO DAILY sertraline 100 mg Tablet 150 mg PO QAM aspirin [Kesha Low Dose Aspirin] 81 mg Tablet,Delayed Release (Dr/Ec) 81 mg PO DAILY buspirone 10 mg Tablet 10 mg PO TID PRN (Reason: Anxiety) levothyroxine 200 mcg Tablet 200 mcg PO QAM cholecalciferol (vitamin D3) [Vitamin D3] 1,000 unit Tablet 1,000 unit PO DAILY amoxicillin 500 mg Tablet 4 cap PO UD PRN (Reason: dental procedure) calcium acetate(phosphat bind) 667 mg Capsule 1 tab PO DAILY acetaminophen 500 mg Tablet 500 mg PO Q8H PRN (Reason: Pain) famotidine [Pepcid] 20 mg Tablet 20 mg PO Q12 rosuvastatin 40 mg tablet 40 mg PO QAM Discontinued metoprolol tartrate 50 mg tablet 25 mg PO Q12 Discharge Orders: Discharge Order (Routine); Ordered 06/12/23 Ordered By: Steven Stuart/Other Patient Handouts: AFib Dc Admission Data Admit Date/Time: 06/09/23 00:38 Attending Provider: Steven Sampson Admit Provider: Malick Blevins Primary Care Provider: Helio Muse Other Providers: Malick Blevins; Rubi Rivera; Ruddy Dominguez; Fidencio Gustafson; Curly Mcleod; Luis Fernando Nevarez; Helio Barker; Mariajose Parkinson; Patricia De Jesus; Rubi Brooks; Shaw Rouse; Dony Falk; Angelique Shaver; Cecilia Barajas; John Martinez; Everardo Fry Other Interventions: Discharge Summary Assessment (RN) Last Done: 06/12/23 15:51
== END 2023-06-12 16:38 | disposition home or self-care (01) | DRG 309 ==
LOC: ED 19:56 → SUATTDRO 06-09 00:38 → 4W 06-09 00:38